=== PATIENT | male | born 1945 | race Caucasian/White ===

== ENCOUNTER → 2016-03-13 | Outpatient (CLI) | payer OTHER ==
[~2016-03-13] MED LIST: GADOBUTROL 10 ML VIAL IVP ONE
--- NOTE | 2016-03-13 17:12 | MR ---
Multiparametric MRI Prostate Gland, Without and With Contrast Indication: Elevated prostate-specific antigen. PSA level 7.4 Technique: Multiparametric MRI examination in the prostate is performed. Anatomic imaging is obtain ed utilizing large lkvoy-oe-ufhx axial T1-weighted series followed by small vfuol-ot-fdfi sequences o donal the prostate gland in three planes. High B value diffusion-weighted imaging of the prostate is a lso obtained in the axial plane. During intravenous administration of 7 Gadavist, dynamic axially ac quired perfusion images of the prostate gland are performed. Examination is processed utilizing [employer] CAD software. Comparison Examination: None. Findings: The prostate gland is enlarged, with a total volume of 85 mL (5.7 x 5.6 x 5.0 cm). The PS A density is 0.087. The hypertrophic nodular central gland fills the majority of the enlarged prostate gland. Two foci o f T1 hyperintense hemorrhage are present in the posterolateral left peripheral zone in the mid gland and in the left transitional zone towards the apex. The peripheral zone has relatively well preserve d T2 hyperintense signal. No peripheral zone nodule, mass, or capsular bulge. The neurovascular bun dles and seminal vesicles are normal. No suspicious central gland nodule or mass. No restricted dif fusion or abnormal perfusion abnormality. Survey of the large etysg-iv-ctjt axial T1-weighted imaging reveals minimal diverticulosis of the sig moid colon. No enlarged lymph node, mass, or bone marrow-replacing lesion. Posterior fusion constru ct at the lumbosacral junction results in minimal susceptibility artifact. Impression: 1. Enlarged prostate gland, with hypertrophic central gland. No suspicious prostate nodule or evide nce of extracapsular disease. 2. No lymphadenopathy or bone marrow-replacing lesion. 3. Sigmoid diverticulosis. BI-RADS: 3. Cosigned: Gallito Ramirez M.D.
== END ==
LOC: FIMAGING 07:45
PROVIDERS: ATTEND Specialist
DX: N40.0 Benign prostatic hyperplasia without lower urinary tract symptoms (principal); K57.30 Diverticulosis of large intestine without perforation or abscess without bleeding
CPT/HCPCS: 72197; 76377; A9585

== ENCOUNTER 2016-09-01 15:42 | Inpatient (IN) | payer OTHER ==
--- NOTE | 2016-09-01 16:18 | CPEKG ---
Heart Rate: 57 RR Interval: 1053 QRSD Interval: 90 QT Interval: 456 QTC Interval: 444 QRS [place]: -31 T Wave [place]: 16 EKG Severity - ABNORMAL ECG - EKG Impression: ATRIAL FLUTTER, A-RATE 283 EKG Impression: LEFT AXIS DEVIATION EKG Impression: ATRIAL FLUTTER IS NEW IN COMPARISON TO PRIOR Electronically Signed By: Sascha León 03-Sep-2016 07:53:53
[2016-09-01] MEDS ORDERED: KETOROLAC 30 MG/1 ML SDV IVP ONE (16:36)
[2016-09-01] MEDS ORDERED: DIAZEPAM 5 MG TAB PO ONE (16:36)
--- NOTE | 2016-09-01 16:41 | EDPHY ---
H & P Stated Complaint: LEFT LEG PAIN Time Seen by Provider: 09/01/16 16:14 HPI/ROS: CHIEF COMPLAINT: Left buttock and hamstring pain HISTORY OF PRESENT ILLNESS: This is a 70-year-old male presenting to the emergency department complaining of left buttock and left hamstring pain x2 weeks. Patient states the pain increased today around noon unable to ambulate bear weight due to the pain in his left buttock. Denies any bowel or bladder incontinence. Reports history of an L4-L5 fusion in 2010, also states he was told possible need for a fusion at L3 and L4 due to stenosis. Patient denies any chest pain or shortness of breath, on arrival EKG patient in a -flutter, patient reports that he had conversion in 2010 for a flutter and 2014 [employer] for a -flutter was placed on Pradaxa not on any medications at this time. "I usually do not know when I am in a flutter, I do not have any pain or palpitations with it" REVIEW OF SYSTEMS: Constitutional: No fever, no chills. Eyes: No discharge. No blurred vision ENT: No sore throat. Cardiovascular: No chest pain, no palpitations. Respiratory: No cough, no shortness of breath. Gastrointestinal: No abdominal pain, no vomiting. Genitourinary: No hematuria. No bowel or bladder incontinence Musculoskeletal: Has left buttock pain radiating to left hamstring. No paresthesia. No back pain Skin: No rashes. Neurological: No headache. Source: Patient, Old records - Personal History Current Tetanus/Diphtheria Vaccine: Yes Tetanus Vaccine Date: Jan 2010 - Medical/Surgical History Hx Asthma: No Hx Chronic Respiratory Disease: No Hx Diabetes: No Hx Cardiac Disease: No Hx Renal Disease: No Hx Cirrhosis: No Hx Alcoholism: No Hx HIV/AIDS: No Hx Splenectomy or Spleen Trauma: No Other PMH: A FLUTTER IN THE PAST - Social History Smoking Status: Former smoker - Physical Exam Exam: General Appearance: Alert, no distress. Appears uncomfortable Eyes: Pupils equal and round no pallor or injection. ENT, Mouth: Mucous membranes moist. Respiratory: There are no retractions, lungs are clear to auscultation. Cardiovascular: A-flutter Gastrointestinal: Abdomen is soft and nontender, no masses, bowel sounds normal. Neurological: No focal deficits. Answering questions appropriately Skin: Warm and dry, no rashes. Musculoskeletal: Neck is supple nontender. No vertebral thoracic or lumbar spine tenderness on palpation Extremities: symmetrical, left buttock tenderness on palpation left hamstring tenderness on palpation positive left straight leg raises positive CMS intact Psychiatric: Patient is oriented X 3, acting appropriately Constitutional: Initial Vital Signs Temperature (C) 36.9 C 09/01/16 15:48 Heart Rate 74 09/01/16 15:48 Respiratory Rate 18 09/01/16 15:48 Blood Pressure 149/97 H 09/01/16 15:48 O2 Sat (%) 97 09/01/16 15:48 O2 Delivery Mode Room Air Allergies/Adverse Reactions: No Known Allergies Allergy (Unverified 05/30/12 10:12) Home Medications: Medication Instructions Recorded ALPRAZolam [Xanax 0.25 MG (*)] 0.25 mg PO DAILY PRN 09/01/16 Aspirin [Aspirin 81mg (*)] 81 mg PO DAILY@18 09/01/16 Cyclobenzaprine [Flexeril 10 MG 10 mg PO HS 09/01/16 (*)] Diazepam [Valium 5 MG (*)] 5 mg PO BID #10 tab 09/01/16 Gabapentin [Neurontin 300 MG (*)] 300 mg PO HS PRN 09/01/16 oxyCODONE/APAP 5/325 [Percocet 1 - 2 tab PO Q6H PRN #10 tab 09/01/16 5/325 (*)] Medical Decision Making ED Course/Re-evaluation: Discussed ED plan of care: CBC, BMP, troponin, PT PTT INR, EKG pain meds. 1725: Spoke with Dr. Deleon with Cardiology [facility], he will see patient in his office this week for further evaluation. He also discussed patient starting Eliquis 5 mg twice daily if patient declines he will discuss this further in his office. 1730: Spoke with patient regarding Eliquis, he states at this time he wait until he speaks with Dr. Deleon but he is taking aspirin 81 mg daily. Patient states his pain level has decreased but still having pain with weight-bearing. Percocet ordered and will re-evaluate 1830: Patient re-evaluation---> complaining of left buttock and hamstring pain , patient states he is having a hard time putting pressure due to the pain. Dilaudid ordered, will re-evaluate patient 1944: Patient re-evaluation, increasing pain in the left buttock and left leg patient unable to ambulate or bear weight. Discussed patient with Dr. Rico. Consulted with Dr. Cameron, patient admitted for pain control sciatica Differential Diagnosis: Other differential diagnosis considered but not limited to herniated disc, uncontrolled a -flutter, and [place] - Data Points Laboratory Results: Laboratory Results 09/01/16 16:28 09/01/16 16:28 09/01/16 09/01/16 09/01/16 16:28 16:28 16:28 WBC 6.63 10^3/uL 10^3/uL (3.80-9.50) RBC 4.60 10^6/uL 10^6/uL (4.40-6.38) Hgb 15.1 g/dL g/dL (13.7-17.5) Hct 43.8 % % (40.0-51.0) MCV 95.2 fL fL (81.5-99.8) MCH 32.8 pg pg (27.9-34.1) MCHC 34.5 g/dL g/dL (32.4-36.7) RDW 12.7 % % (11.5-15.2) Plt Count 177 10^3/uL 10^3/uL (150-400) MPV 10.3 fL fL (8.7-11.7) Neut % (Auto) 81.0 % H % (39.3-74.2) Lymph % (Auto) 11.6 % L % (15.0-45.0) [place] % (Auto) 5.3 % % (4.5-13.0) Eos % (Auto) 1.5 % % (0.6-7.6) Baso % (Auto) 0.3 % % (0.3-1.7) Nucleat RBC Rel Count 0.0 % % (0.0-0.2) Absolute Neuts (auto) 5.37 10^3/uL 10^3/uL (1.70-6.50) Absolute Lymphs (auto) 0.77 10^3/uL L 10^3/uL (1.00-3.00) Absolute Monos (auto) 0.35 10^3/uL 10^3/uL (0.30-0.80) Absolute Eos (auto) 0.10 10^3/uL 10^3/uL (0.03-0.40) Absolute Basos (auto) 0.02 10^3/uL 10^3/uL (0.02-0.10) Absolute Nucleated RBC 0.00 10^3/uL 10^3/uL (0-0.01) Immature Gran % 0.3 % % (0.0-1.1) Immature Gran # 0.02 10^3/uL 10^3/uL (0.00-0.10) PT 14.0 SEC SEC (12.0-15.0) INR 1.09 (0.83-1.16) APTT 24.8 SEC SEC (23.0-38.0) Sodium 142 mEq/L mEq/L (134-144) Potassium 4.2 mEq/L mEq/L (3.5-5.2) Chloride 111 mEq/L H mEq/L (97-110) Carbon Dioxide 21 mEq/l L mEq/l (22-31) Anion Gap 10 mEq/L mEq/L (8-16) BUN 15 mg/dL mg/dL (7-23) Creatinine 0.8 mg/dL mg/dL (0.7-1.3) Estimated GFR > 60 Glucose 85 mg/dL mg/dL (70-100) Calcium 9.5 mg/dL mg/dL (8.5-10.4) Troponin I < 0.012 ng/mL ng/mL (0-0.034) Medications Given: Discontinued Medications Diazepam (Valium) 5 mg PO EDNOW ONE Stop: 09/01/16 16:37 Last Admin: 09/01/16 16:41 Dose: 5 mg Hydromorphone HCl (Dilaudid) 0.5 mg IVP EDNOW ONE Stop: 09/01/16 18:40 Last Admin: 09/01/16 18:45 Dose: 0.5 mg Ketorolac Tromethamine (Toradol) 30 mg IVP ONCE ONE Stop: 09/01/16 16:37 Last Admin: 09/01/16 16:41 Dose: 30 mg Oxycodone/Acetaminophen (Percocet 5/325) 1 tab PO EDNOW ONE Stop: 09/01/16 17:26 Last Admin: 09/01/16 17:35 Dose: 1 tab Departure - Departure Disposition: [facility] Inpatient Acute Clinical Impression: Sciatica of left side associated with disorder of lumbar spine, Atrial flutter , chronic Condition: Good
[2016-09-01 16:42] LABS: % IMMATURE GRANULYOCYTES 0.3 % (0.0-1.1); ABSOLUTE IMMATURE GRANULOCYTES 0.02 10^3/uL (0.00-0.10); ADD DIFF? NO; ADD MORPH? NO; ADD SCAN? NO; ATYPICAL LYMPHOCYTE FLAG 0 (0-99); FRAGMENT RBC FLAG 0 (0-99); HEMATOCRIT 43.8 % (40.0-51.0); HEMOGLOBIN 15.1 g/dL (13.7-17.5); LEFT SHIFT FLG 0 (0-99); LIPEMIA HEMOLYSIS FLAG 90 (0-99); MEAN CELL HEMOGLOBIN 32.8 pg (27.9-34.1); MEAN CELL HEMOGLOBIN CONCENTR. 34.5 g/dL (32.4-36.7); MEAN CELL VOLUME 95.2 fL (81.5-99.8); MEAN PLATELET VOLUME 10.3 fL (8.7-11.7); PLATELET CLUMPS FLAG 20 (0-99); PLATELET COUNT 177 10^3/uL (150-400); RED CELL DISTRIBUTION WIDTH 12.7 % (11.5-15.2)
[2016-09-01 16:55] LABS: ANION GAP 10 mEq/L (8-16); CALCIUM 9.5 mg/dL (8.5-10.4); CARBON DIOXIDE 21 mEq/l (22-31); CHLORIDE 111 mEq/L (97-110); CREATININE 0.8 mg/dL (0.7-1.3); GLOMERULAR FILTRATION RATE > 60; GLUCOSE 85 mg/dL (70-100); POTASSIUM 4.2 mEq/L (3.5-5.2); SODIUM 142 mEq/L (134-144)
[2016-09-01 17:07] LABS: TROPONIN I < 0.012 ng/mL (0-0.034)
[2016-09-01 17:09] LABS: APTT 24.8 SEC (23.0-38.0); INR 1.09 (0.83-1.16)
[2016-09-01] MEDS ORDERED: OXYCODONE/APAP 5/325 TAB PO ONE (17:25)
[2016-09-01] MEDS ORDERED: HYDROmorphONE/DILAUDID 1 MG/ML SYR IVP ONE (18:39)
[2016-09-01] MEDS ORDERED: ONDANSETRON DISINTEGRATING 4 MG TAB PO PRN (22:45)
[2016-09-01] MEDS ORDERED: DIAZEPAM 5 MG TAB PO PRN (22:45)
[2016-09-01] MEDS ORDERED: ONDANSETRON 4 MG/2 ML VIAL IVP PRN (22:45)
[2016-09-01] MEDS ORDERED: PROMETHAZINE HCL 25 MG TAB PO PRN (22:45)
[2016-09-01] MEDS ORDERED: ALPRAZolam 0.25 MG TAB PO PRN (23:13)
[2016-09-01] MEDS: HYDROmorphONE/DILAUDID 1 MG/ML SYR IVP PRN (23:42)
--- NOTE | 2016-09-02 00:30 | GHP ---
[f rep st] HISTORY AND PHYSICAL DATE OF ADMISSION: 09/01/2016 CHIEF COMPLAINT: Buttock pain. HISTORY OF PRESENT ILLNESS: This is a 70-year-old man who presents with buttock pain. He has a his tory of an L4-[address] Valero 6 years ago. Pain started about 2 weeks ago, it has been slowly progressive but acutely worse today. It is in his left buttock, maybe radiates down to his h amstring though this is mild. The pain is severe, he is unable ambulate. He does not really have a ny pain in his back. He has not had any recent fevers. He does not have any loss of bowel or bladd er. He has no lower extremity weakness. He has had some intermittent numbness in the anterior aspe ct of his right thigh for months. This comes and goes. He would not have come into the hospital fo r this. In the ED, he was found to be in atrial flutter. He has a history of atrial flutter, he has been ca rdioverted twice, last time was in 2014. He is taking an aspirin for this. He was asymptomatic wit h this, as he says that he has been in the past. He has seen Dr. Deleon. He is not having any ches t pain or shortness of breath, either. PAST MEDICAL/SURGICAL HISTORY: 1. L4-[address] Valero. 2. Elevated PSA with a negative biopsy, status post TURP. 3. Atrial flutter, as above. MEDICATIONS: Please see medication reconciliation. ALLERGIES: No known drug allergies. FAMILY HISTORY: Reviewed and noncontributory. SOCIAL HISTORY: He occasionally drinks alcohol. He quit smoking 45 years ago. REVIEW OF SYSTEMS: A 10-point review of systems is conducted and is negative except per HPI. PHYSICAL EXAM: VITAL SIGNS: Blood pressure 163/110, heart rate is 62, respiration rate 14, saturat ing 97% on room air. Temperature is 36.5. GENERAL: The patient is a pleasant man who is resting i n bed comfortably, in no acute distress. HEENT: Normocephalic, atraumatic. CARDIOVASCULAR: Irreg ularly irregular. There are no murmurs, rubs, or gallops. He has no elevated JVD. He has no lower extremity edema. PULMONARY: Lungs clear to auscultation bilaterally. ABDOMEN: Soft, nontender, nondistended. SKIN: No rash. : No [place]. NEUROLOGIC: Alert and oriented x3. He has 5/5 araseli r strength in his left leg other than his hip flexors, which are limited on his left side due to marylin n. Dorsiflexion and plantar flexion are 5/5. Sensation to light touch is intact in his bilateral l ower extremities. Reflexes are brisk bilaterally but symmetric. BACK: He is tender to palpation t o the left buttock. There is no significant tenderness to palpation over his lumbar spinal processe s. PSYCHIATRIC: Normal mood and affect. LABS: CBC is normal. INR is 1. Bicarb is 20, troponin is negative. DATA: 1. Transesophageal echocardiogram which I reviewed from 2010, was unremarkable. He had a normal LV . He did not have a thrombus at that time. 2. ECG, which I personally reviewed and interpreted, shows atrial flutter. There are no ischemic c hanges. He does have a left axis deviation. IMPRESSION AND PLAN: This is a 70-year-old man incidentally found to be in atrial flutter. He is a dmitted for pain control. 1. Left buttock pain: I assume that this is sciatica. He has seen Dr. Valero in the past. We jenniffer l give him pain control, both IV and oral overnight. We will also give him muscle relaxers. I have ordered an MRI for the morning. Dr. Valero should be notified of his admission. 2. Atrial flutter: Seems this is paroxysmal, he is asymptomatic. Dr. Deleon was consulted by the ED, though it is unclear if he is aware of his admission. He is taking an aspirin. He is rate cont rolled. Would recommend discussing with Cardiology in the morning to consider a cardioversion, I wi ll make him n.p.o. after midnight. /[id number]/MODL
[2016-09-02] MEDS: HYDROmorphONE/DILAUDID 1 MG/ML SYR IVP PRN (02:53)
[2016-09-02] MEDS: oxyCODONE IR 5 MG TAB PO PRN ×4 (06:24→18:33)
[2016-09-02] MEDS: ACETAMINOPHEN 500 MG TAB PO SCH ×3 (09:41→21:52)
--- NOTE | 2016-09-02 09:45 | CPEKG ---
Heart Rate: 61 RR Interval: 984 QRSD Interval: 134 QT Interval: 476 QTC Interval: 480 QRS [place]: -51 T Wave [place]: 51 EKG Severity - ABNORMAL ECG - EKG Impression: ATRIAL FLUTTER, A-RATE 277 EKG Impression: NONSPECIFIC IVCD WITH LAD EKG Impression: SIMILAR FINDINGS TO PRIOR ECG (YESTERDAY) Electronically Signed By: Sascha León 02-Sep-2016 09:53:23
--- NOTE | 2016-09-02 10:03 | HOSPPROG ---
Hospitalist Progress Note Assessment/Plan: DIAGNOSES: -acute sciatic and buttock area, presumed nerve impingement -atrial flutter, rapid ventricular rate.. The patient still has severe sciatic pain with any movement and is unable to stand. This is despite narcotic analgesic, Toradol, muscle relaxer, Valium. He has not yet had steroid. MRI is pending In terms of atrial flutter the patient's heart rate has slowed significantly and is pulses regular. An EKG has been done and I am told that it shows continued atrial flutter but trace master is not functioning so I am unable to view the EKG tracing. PLANS: -add prednisone for sciatic pain -await MRI of lumbar sacral spine -neuro surgical consult -I am awaiting the ability to see his current EKG to determine if he is still in atrial flutter with better rate control versus is converted to sinus rhythm. Will need to see that to determine whether we should consider cardioversion or not SUBJECTIVE: The patient is still unable to move due to severe buttock pain that sounds neuritic, no sensation of muscle spasm He continues to have no cardiac symptoms at all, no shortness of breath OBJECTIVE Vitals reviewed: Pulse is now down into the 80 range, and and regular otherwise stable Exam: alert oriented, in obvious severe pain with movement skin warm dry color ok resps not labored lungs clear BSs heart regular abd soft nondistended nontender, bowel sounds present limbs warm, no edema iv site ok EKG done this morning but we are unable to view the record due to computer issues Objective: Vital Signs Temp Pulse Resp BP Pulse Ox 36.7 C 56 L 18 162/95 H 96 09/02/16 08:51 09/02/16 08:51 09/02/16 08:51 09/02/16 08:51 09/02/16 08:51 09/01/16 09/02/16 09/03/16 06:59 06:59 06:59 Output Total 675 200 Balance -675 -200 PT 14.0 SEC (12.0-15.0) 09/01/16 16:28 INR 1.09 (0.83-1.16) 09/01/16 16:28 ICD10 Worksheet Patient Problems: Problems Problem Status Onset Atrial flutter, chronic Acute Sciatica of left side associated with disorder of lumbar spine Acute
[2016-09-02] MEDS: predniSONE 20 MG TAB PO SCH (11:47)
[2016-09-02] MEDS ORDERED: ENOXAPARIN 80 MG/0.8 ML SYR SC SCH (12:45)
[2016-09-02] MEDS: NS 1,000 ML IV SCH (14:15)
--- NOTE | 2016-09-02 17:58 | SOAPPROG ---
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 Pt will need hardware removal at L4/5 with an adjacent segment fusion of L3/4. I spoke with RN to stop all anticoagulation/make NPO. Call to OR to schedule by Caren Macedo NP. I spoke with Dr Cho and he is ok from his standpoint as well as Dr Conti's for surgery. Dr Valero to speak with Ed regarding plan now. Consents in am. Orders in computer. 09/02/16 17:52 Objective: Vital Signs Temp Pulse Resp BP Pulse Ox 36.7 C 72 18 128/98 H 95 09/02/16 16:55 09/02/16 16:55 09/02/16 16:55 09/02/16 16:55 09/02/16 16:55 09/01/16 09/02/16 09/03/16 05:59 05:59 05:59 Output Total 550 565 Balance -550 -565 PT 14.0 SEC (12.0-15.0) 09/01/16 16:28 INR 1.09 (0.83-1.16) 09/01/16 16:28 ICD10 Worksheet Patient Problems: Problems Problem Status Onset Atrial flutter, chronic Acute Sciatica of left side associated with disorder of lumbar spine Acute
[2016-09-02] MEDS ORDERED: ASPIRIN 81 MG CHEWABLE TAB PO SCH (18:00)
--- NOTE | 2016-09-02 20:53 | GCON ---
[f rep st] CONSULTATION DATE OF CONSULTATION: 09/02/2016 CHIEF COMPLAINT: Buttock pain and leg pain. HISTORY OF PRESENT ILLNESS: The patient is a 70-year-old gentleman who is known to [facility], specifically Dr. Valero, after having an L4-5 fusion done approximately 6 years ago. He pres ented to the emergency department with buttock pain and leg pain. This started approximately 2 week s ago and has progressively worsened and then acutely worsened the day of his admission. He describ es pain in his left buttock, radiates down into his hamstring. The pain is severe. He was unable t o ambulate so much that he had to call 911 and [facility] to [facility]. We were consulted for back and leg pain. He denies any other complaints such as fevers. No loss of bowel or bladder control. No saddle numb ness or groin numbness. He is able to void normally. Does have some pain related weakness in his l ower extremities due to pain in the buttock and hamstring. He gets some intermittent numbness to th e anterior aspect of his right thigh that has been going on for months. This comes and goes. He wo uld not have come into the hospital for the right leg symptoms but the left leg and lower back issue s were his main complaint. In the emergency department, he was found to be in atrial flutter. [facility] is monitoring this. He has been cardioverted twice for this, last in 2014. He is cur rently on aspirin. He sees Dr. Farhad Deleon. He denies any current chest pain or shortness of felix th. No abdominal complaints. No complaints. No loss of bowel or bladder control. PAST MEDICAL AND SURGICAL HISTORY: 1. L4-[address] Valero. 2. Elevated PSA with negative biopsy status post TURP. 3. Atrial flutter. MEDICATIONS: Please see med reconciliation form. ALLERGIES: No known drug allergies. FAMILY HISTORY: Noncontributory and reviewed. SOCIAL HISTORY: He is . He quit smoking 45 years ago. He drinks occasional alcohol. IMMUNIZATIONS: Up to date. TRAVEL: No recent travel. REVIEW OF SYSTEMS: A 10-point review of systems conducted and negative except noted in HPI. PHYSICAL EXAM: GENERAL: This is an awake, alert, oriented male, in no acute distress. VITAL SIGNS : Stable. HEENT: Pupils are equal, round, reactive to light. EOMs intact. Full visual cnorad by confrontation. Ears are patent. Nose is patent. NECK: Soft and supple. No midline tenderness. Full range of motion in flexion, extension, lateral bending, and rotation. RESPIRATORY: Deferred. CARDIAC: Deferred. ABDOMEN: Soft, nontender. No peritoneal signs. /RECTAL: Deferred. NEUR O: The patient is awake, alert, oriented to name, place, location, date, time, and situation. Lalo ry is intact to immediate, past, and current events. Speech: No aphasia, dysarthria, dysphonia. C ranial nerves 2-12 grossly intact. Motor: Patient has 5/5 strength all muscle groups of bilateral upper and lower extremities to include deltoids, biceps, triceps, brachioradialis, wrist flexors and extensors, hogshead dumper intrinsic fingers, iliopsoas, quadriceps, hamstring, plantar flexion, dorsiflexion, EHL testing. Sensation is grossly intact to light touch throughout all dermatome distributions upp er and lower extremities. Negative straight leg raise. Negative KARL test. Reflexes of biceps, t riceps, brachioradialis, knee jerks, and ankle jerk 2+/4. Toes are downgoing bilaterally. Samaniego' s negative. Babinski negative. Notes clonus. DIAGNOSTIC STUDIES: 1. Pending x-rays of lumbar spine on flexion extension views. 2. Pending MRI of the lumbar spine without contrast. ASSESSMENT: The patient is a 70-year-old male, admitted to Internal Medicine with buttock pain and sciatic symptoms. He also has currently some issues with atrial flutter. PLAN/DISCUSSION: The patient was seen and evaluated both by myself and Dr. Valero. He was seen in room 146 at [facility]. He did have some laboratory tests which CBC was normal and IN R was 1. His troponins were negative. He has a pending x-ray of his lumbar spine on flexion and ex tension views and a pending MRI of the lumbar spine without contrast. Internal Medicine admitted th e patient due to incidentally finding an issue with atrial flutter and admitted him for pain control as well. As mentioned above, Dr. Valero's did see and evaluate him as well. We will review the x- rays and MRI once it is obtained. We did speak with the patient about his plan accordingly at this point. They have tried pain medication. They recently started for him as well. All questions and concerns were answered. /[id number]/MODL
[2016-09-02] MEDS: CYCLOBENZAPRINE 10 MG TAB PO SCH (21:52)
[2016-09-03] MEDS: oxyCODONE IR 5 MG TAB PO PRN ×2 (06:26→23:25)
--- NOTE | 2016-09-03 07:10 | NEUSURGPN ---
Assessment/Plan: Assessment: 70 yo male that is s/p L4/[address] Valero in the past with new ASD at L3/4 Plan: -pt with continued s/s -pt understands surgery -consented for surgery -marked -orders in already -Pt seen by Dr Valero as well -call with any problems or issues -(from 09/02/16 note) MRI and Xrays reviewed with Dr Valero and Pt has ASD at L3 /4. Pt will need hardware removal at L4/5 with an adjacent segment fusion of L3 /4. I spoke with RN to stop all anticoagulation/make NPO. Call to OR to schedule by Caren Macedo NP. I spoke with Dr Cho and he is ok from his standpoint as well as Dr Conti's for surgery 09/02/16 17:52 Subjective: Pt awake and alert. Pt with continued back and leg pain. No richardson/neck/chest/abd or gu complaints. Objective: AAO x 3, PERRLA/EOMI no droop CN 2-12 grossly intact +lt touch 5/5 BUE/BLE = limited in LLE due to pain Neuro Check Frequency: per routine Urinary Catheter in Place: No - Physician Discussed Patient with : Anjum Patient Seen by : Anjum Neurosurgery Physical Exam - Vitals, I&O, Labs I and O 09/02/16 09/03/16 09/04/16 05:59 05:59 05:59 Output Total 550 1040 Balance -550 -1040 Weight 72.57 kg Output: Urine (ml) 550 1040 Urinal 550 1040 Other: Intake Quantity Yes Sufficient Number of Voids Urinal 2 1 Vital Signs Temp Pulse Resp BP Pulse Ox 36.6 C 52 L 15 115/72 97 09/03/16 04:35 09/03/16 04:35 09/03/16 04:35 09/03/16 04:35 09/03/16 04:35 ICD10 Worksheet Patient Problems: Problems Problem Status Onset Atrial flutter, chronic Acute Sciatica of left side associated with disorder of lumbar spine Acute
--- NOTE | 2016-09-03 07:13 | PDHPUP ---
History & Physical Update H&P update statement: This history and physical update is based on an assessment of the patient which was completed after admission or registration (within 24 hours), but prior to the surgery/procedure. H&P update: H&P reviewed & patient examined, no change in patient's condition since H&P completed
[2016-09-03] MEDS: predniSONE 20 MG TAB PO SCH (08:44)
[2016-09-03] MEDS: ACETAMINOPHEN 500 MG TAB PO SCH ×3 (08:44→23:24)
[2016-09-03] MEDS ORDERED: THROMBIN (BOVINE) 5,000 UNIT VIAL TP ONE (13:57)
[2016-09-03] MEDS ORDERED: BUPIVACAINE/EPI 0.25% 30 ML SDV ONE (13:57)
[2016-09-03] MEDS ORDERED: BACITRACIN 50,000 UNITS/10 ML SYR IRR ONE (13:58)
--- NOTE | 2016-09-03 16:20 | PDCARCONS ---
Cardiology Consult Reason for Consult: Atrial flutter Chief Complaint: Inability to walk Requesting Physician: Marquis History of Present Illness: 62-year-old male history of atrial flutter x2. Both episodes required cardioversion. He was seen by Dr. Jonah Berrios at of [facility]. At that time he had pneumonia. He went into atrial flutter. He was asymptomatic. He at that time he had an extensive workup including a negative nuclear stress test , unremarkable echocardiogram and underwent cardioversion. He has no symptoms related to this irregular rhythm. He has no cardiovascular history. In particular he denies valvular heart disease coronary disease, primary muscle disease. He has had no syncope or near syncope. He has had no palpitations. He is admitted to the hospital with a need for back surgery. He was found to be in atrial flutter with a controlled ventricular response. I am asked to comment on need for cardioversion, need for chronic anticoagulation and/or rate control. On my arrival he is feeling well without any complaints other than back pain and inability to walk. Cardiac review of systems is negative for chest pain, shortness of breath, PND , orthopnea, palpitations, syncope, near syncope, edema. History Information - Allergies/Home Medication List Allergies/Adverse Reactions: No Known Allergies Allergy (Unverified 05/30/12 10:12) Home Medications: ALPRAZolam [Xanax 0.25 MG (*)] 0.25 mg PO DAILY PRN 09/01/16 [Last Taken ] Aspirin [Aspirin 81mg (*)] 81 mg PO DAILY@18 09/01/16 [Last Taken 08/31/16] Cyclobenzaprine [Flexeril 10 MG (*)] 10 mg PO HS 09/01/16 [Last Taken 09/01/16] Gabapentin [Neurontin 300 MG (*)] 300 mg PO HS PRN 09/01/16 [Last Taken Unknown] I have personally reviewed and updated: family history, medical history, social history, surgical history - Past Medical History Additional medical history: Atrial flutter as above. Pneumonia - Family History Positive for: non-pertinent - Social History Smoking Status: Former smoker Alcohol Use: None (He is extraordinarily active cycling without limitations.) Age [age] Years: [age] Sex: Male Congestive Heart Failure History: No Hypertension History: No Stroke/TIA/Thromboembolism History: No Vascular Disease History: No Diabetes Mellitus: No [id number] Score: 5 Physical Exam Temp Pulse Resp BP Pulse Ox 36.7 C 76 16 144/89 H 96 09/03/16 15:48 09/03/16 15:48 09/03/16 15:48 09/03/16 15:48 09/03/16 15:48 Constitutional: no apparent distress, appears nourished, not in pain Eyes: PERRL, anicteric sclera Ears, Nose, Mouth, Throat: moist mucous membranes Cardiovascular: no murmur, rub, or gallop, irregularly irregular, No systolic murmur, No JVD Peripheral Pulses: 1+: carotid (R), carotid (L), femoral (R), femoral (L), dorsalis-pedis (R), dorsalis-pedis (L) Respiratory: no respiratory distress, no rales or rhonchi Gastrointestinal: normoactive bowel sounds, soft, non-tender abdomen, no palpable masses Genitourinary: no bladder fullness Skin: warm, normal color Musculoskeletal: full muscle strength, no muscle tenderness Neurologic: AAOx3, No facial droop Psychiatric: interacting appropriately, not anxious Lymph, Heme, Immunologic: no cervical LAD, no supraclavicular LAD Lab and Imaging 09/01/16 16:28 09/01/16 16:28 WBC 6.63 10^3/uL (3.80-9.50) 09/01/16 16:28 RBC 4.60 10^6/uL (4.40-6.38) 09/01/16 16:28 Hgb 15.1 g/dL (13.7-17.5) 09/01/16 16:28 Hct 43.8 % (40.0-51.0) 09/01/16 16:28 MCV 95.2 fL (81.5-99.8) 09/01/16 16:28 MCH 32.8 pg (27.9-34.1) 09/01/16 16:28 MCHC 34.5 g/dL (32.4-36.7) 09/01/16 16:28 RDW 12.7 % (11.5-15.2) 09/01/16 16:28 Plt Count 177 10^3/uL (150-400) 09/01/16 16:28 MPV 10.3 fL (8.7-11.7) 09/01/16 16:28 Neut % (Auto) 81.0 % (39.3-74.2) H 09/01/16 16:28 Lymph % (Auto) 11.6 % (15.0-45.0) L 09/01/16 16:28 Baker % (Auto) 5.3 % (4.5-13.0) 09/01/16 16:28 Eos % (Auto) 1.5 % (0.6-7.6) 09/01/16 16:28 Baso % (Auto) 0.3 % (0.3-1.7) 09/01/16 16:28 Nucleat RBC Rel Count 0.0 % (0.0-0.2) 09/01/16 16:28 Absolute Neuts (auto) 5.37 10^3/uL (1.70-6.50) 09/01/16 16:28 Absolute Lymphs (auto) 0.77 10^3/uL (1.00-3.00) L 09/01/16 16:28 Absolute Monos (auto) 0.35 10^3/uL (0.30-0.80) 09/01/16 16:28 Absolute Eos (auto) 0.10 10^3/uL (0.03-0.40) 09/01/16 16:28 Absolute Basos (auto) 0.02 10^3/uL (0.02-0.10) 09/01/16 16:28 Absolute Nucleated RBC 0.00 10^3/uL (0-0.01) 09/01/16 16:28 Immature Gran % 0.3 % (0.0-1.1) 09/01/16 16:28 Immature Gran # 0.02 10^3/uL (0.00-0.10) 09/01/16 16:28 PT 14.0 SEC (12.0-15.0) 09/01/16 16:28 INR 1.09 (0.83-1.16) 09/01/16 16:28 APTT 24.8 SEC (23.0-38.0) 09/01/16 16:28 Sodium 142 mEq/L (134-144) 09/01/16 16:28 Potassium 4.2 mEq/L (3.5-5.2) 09/01/16 16:28 Chloride 111 mEq/L (97-110) H 09/01/16 16:28 Carbon Dioxide 21 mEq/l (22-31) L 09/01/16 16:28 Anion Gap 10 mEq/L (8-16) 09/01/16 16:28 BUN 15 mg/dL (7-23) 09/01/16 16:28 Creatinine 0.8 mg/dL (0.7-1.3) 09/01/16 16:28 Estimated GFR > 60 09/01/16 16:28 Glucose 85 mg/dL (70-100) 09/01/16 16:28 Calcium 9.5 mg/dL (8.5-10.4) 09/01/16 16:28 Troponin I < 0.012 ng/mL (0-0.034) 09/02/16 04:20 Visualized and Interpreted EKG results: Yes EKG additional interpertation: EKG reveals atrial flutter with a controlled ventricular response. There are no ST-T changes concerning for ischemia. This appears to be classic flutter A/P Assessment: Impression: Lone atrial flutter with controlled ventricular response. Patient is asymptomatic. He has no history of structural heart disease and has undergone a workup. He is preparing for back surgery. At this point any intervention would require long-term anticoagulation of at least 30 days. I am in favor of continued observation. Aspirin as soon as possible. Once he is able to walk would determine whether not his atrial flutter is rate controlled with exercise. At that point we discussed options of more aggressive rate control with beta-leif versus rhythm management by cardioversion and/or flutter ablation. He and I are both in agreement that at this time his back is his biggest problem. We do not want to interfere with need for surgery/ injections. We will follow him clinically. If he is planning to go to the operating room would begin low-dose beta-leif for rate control during surgery. This was discussed with Dr. Cho. Plan: No indications for cardioversion at this time. Dose beta-leif for rate control if needed for surgery. Outpatient follow-up for rate/rhythm control assessment. Past Medical History - Personal History Current Tetanus/Diphtheria Vaccine: Yes Tetanus Vaccine Date: Jan 2010 - Medical/Surgical History Hx Asthma: No Hx Chronic Respiratory Disease: No Hx Cardiac Disease: No Hx Diabetes: No Hx Renal Disease: No Hx Alcoholism: No Hx Cirrhosis: No Hx HIV/AIDS: No Hx Splenectomy or Spleen Trauma: No Other PMH: A FLUTTER IN THE PAST, L4/L5 fusion, BPH- prostate surgery 2015, tonsilectomy, appendectomy, umbilical hernia repair, 2 cardioversions, - Social History Smoking Status: Former smoker Review of Systems - Review of Systems Constitutional: denies: chills, fever, malaise EENTM: no symptoms reported Respiratory: no symptoms reported Cardiac: no symptoms reported Gastrointestinal/Abdominal: no symptoms reported Genitourinary: no symptoms Musculoskelatal: back pain Skin: no symptoms Neurological: paresthesia Hematologic/Lymphatic: no symptoms reported Immunologic/allergic: no symptoms reported
[2016-09-03] MEDS ORDERED: BISACODYL 10 MG SUPP PR PRN (16:56)
[2016-09-03] MEDS ORDERED: MAGNESIUM HYDROXIDE 30 ML UDCUP PO PRN (16:56)
[2016-09-03] MEDS ORDERED: LACTULOSE 20 GM/30 ML UDCUP PO PRN (16:56)
[2016-09-03] MEDS ORDERED: POLYETHYLENE GLYCOL 3350 17 GM PKT PO PRN (16:56)
--- NOTE | 2016-09-03 16:56 | HOSPPROG ---
Hospitalist Progress Note Assessment/Plan: 1. acute sciatic and buttock area, presumed nerve impingement -surgery today 2. atrial flutter, rapid ventricular rate -cardiology consult noted -eventual outpatient ablation procedure possible, will need o/p FU -off aspirin and anticoagulation for surgery -resume aspirin for lone aflutter and DVT prophylaxis measures post op when safe per neurosurgery -B leif for rate control around surgery and post op (as starts to exercise ) if needed PCP Dr Jarrell Dispo- > 2 mdnts to recuperate fro surgery DVT prophy- see above Subjective: Feels OK- waiting for surgery today. Denies CP/SOB/abd pain. Back pain OK with meds currently. Objective: Vital Signs Temp Pulse Resp BP Pulse Ox 98.1 F 76 16 144/89 H 96 09/03/16 15:48 09/03/16 15:48 09/03/16 15:48 09/03/16 15:48 09/03/16 15:48 09/02/16 09/03/16 09/04/16 11:59 11:59 11:59 Output Total 475 Balance -475 PT 14.0 SEC (12.0-15.0) 09/01/16 16:28 INR 1.09 (0.83-1.16) 09/01/16 16:28 - Pending Discharge Pending Discharge Within 24 Hours: No - Physical Exam Constitutional: no apparent distress, appears nourished Eyes: PERRL, anicteric sclera, EOMI Ears, Nose, Mouth, Throat: moist mucous membranes, hearing normal Cardiovascular: irregularly irregular Respiratory: no respiratory distress, no rales or rhonchi, clear to auscultation Gastrointestinal: normoactive bowel sounds, soft, non-tender abdomen, no palpable masses Psychiatric: interacting appropriately, not anxious, not encephalopathic, thought process linear ICD10 Worksheet Patient Problems: Problems Problem Status Onset Arthrodesis status Acute Atrial flutter, chronic Acute Lumbar radicular pain Acute Lumbar stenosis Acute Sciatica of left side associated with disorder of lumbar spine Acute
[2016-09-03] MEDS ORDERED: ceFAZolin 2 GM/DEXTROSE 100 ML IV ONE (17:00)
--- NOTE | 2016-09-03 17:21 | PDANEPAE ---
ANE Past Medical History - Cardiovascular History Hx Arrhythmias: Yes Cardiovascular History Comment: atril flutter - Pulmonary History Hx Oxygen in Use at Home: No Hx Sleep Apnea: No Sleep Apnea Screening Result - Last Documented: Negative - Endocrine History Hx Diabetes: No - Liver History Hx Hepatic Disorders: Yes Hepatic History Comment: elevated nLFT's with lipitor - Chronic Pain History Chronic Pain: No ANE Patient History - Allergies Allergies/Adverse Reactions: No Known Allergies Allergy (Unverified 05/30/12 10:12) - Home Medications Home Medications: ALPRAZolam [Xanax 0.25 MG (*)] 0.25 mg PO DAILY PRN 09/01/16 [Last Taken ] Aspirin [Aspirin 81mg (*)] 81 mg PO DAILY@18 09/01/16 [Last Taken 08/31/16] Cyclobenzaprine [Flexeril 10 MG (*)] 10 mg PO HS 09/01/16 [Last Taken 09/01/16] Gabapentin [Neurontin 300 MG (*)] 300 mg PO HS PRN 09/01/16 [Last Taken Unknown] - NPO status NPO Since - Liquids (Date): 09/03/16 NPO Since - Liquids (Time): 00:00 NPO Since - Solids (Date): 09/02/16 NPO Since - Solids (Time): 18:00 - Smoking Hx Smoking Status: Former smoker - Alcohol Use Alcohol Use: None (He is extraordinarily active cycling without limitations.) ANE Labs/Vital Signs - Labs Result Diagrams: 09/01/16 16:28 09/01/16 16:28 - Vital Signs Blood Pressure: 144/89 Heart Rate: 76 Respiratory Rate: 16 O2 Sat (%): 96 Height: 175.26 cm Weight: 72.57 kg ANE Physical Exam - Airway Mallampati Score: Class 1 Mouth exam: normal dental/mouth exam - Pulmonary Pulmonary: no respiratory distress - Cardiovascular Cardiovascular: regular rate and rhythym - ASA Status ASA Status: II
[2016-09-03] MEDS ORDERED: PROPOFOL/EMULSION 500 MG/50 ML BOTTLE IV ONE ×2 (17:54→19:48)
[2016-09-03] MEDS ORDERED: ROCURONIUM 100 MG/10 ML VIAL ONE (17:55)
[2016-09-03] MEDS ORDERED: DEXAMETHASONE 4 MG/ML VIAL ONE ×2 (17:55)
[2016-09-03] MEDS ORDERED: LIDOCAINE 2% 100 MG/5 ML SYR ONE (17:55)
[2016-09-03] MEDS ORDERED: PHENYLEPHRINE 10 MG/ML SDV ONE (17:58)
[2016-09-03] MEDS ORDERED: diphenhydrAMINE 25 MG CAP PO PRN (18:03)
[2016-09-03] MEDS ORDERED: NALOXONE HCL 0.4 MG/ML INJ IVP PRN ×2 (18:03→21:55)
[2016-09-03] MEDS ORDERED: HYDROmorphONE/DILAUDID 6 MG/30 ML PCA IV PRN (18:03)
[2016-09-03] MEDS ORDERED: PROPOFOL 200 MG/20 ML VIAL ONE (18:07)
--- NOTE | 2016-09-03 21:49 | SOAPPROG ---
SOAP Progress Note Assessment/Plan: Post Op Visit S: Awake and alert. NAD. Pt with expected lower back pain O: AFVSS, PERRLA/EOMI no droop CN 2-12 grossly intact CDI 5/5 BUE/BLE = STELLA in place A/P: 70 yo male that is s/p removal of hardware at L4/5 with new TLIF at L3/4 and PSF L3-L5 -orders in place -pt fit for brace already -call with any questions or concerns -take medications as directed -pt seen by Dr Valero as well 09/03/16 21:46 Objective: Vital Signs Temp Pulse Resp BP Pulse Ox 36.7 C 76 16 144/89 H 96 09/03/16 15:48 09/03/16 17:20 09/03/16 17:20 09/03/16 17:20 09/03/16 17:20 09/02/16 09/03/16 09/04/16 05:59 05:59 05:59 Output Total 475 Balance -475 PT 14.0 SEC (12.0-15.0) 09/01/16 16:28 INR 1.09 (0.83-1.16) 09/01/16 16:28 ICD10 Worksheet Patient Problems: Problems Problem Status Onset Arthrodesis status Acute Atrial flutter, chronic Acute Lumbar radicular pain Acute Lumbar stenosis Acute Sciatica of left side associated with disorder of lumbar spine Acute - ICD10 Problem Qualifiers (1) Lumbar stenosis (2) Lumbar radicular pain (3) Arthrodesis status
[2016-09-03] MEDS ORDERED: LR 500 ML IV PRN (21:55)
[2016-09-03] MEDS ORDERED: MEPERIDINE 25 MG/ML SYR IVP PRN (21:55)
[2016-09-03] MEDS ORDERED: fentaNYL 100 MCG/2 ML INJ IVP PRN (21:55)
[2016-09-03] MEDS ORDERED: ONDANSETRON 4 MG/2 ML VIAL IVP PRN (21:55)
--- NOTE | 2016-09-03 21:55 | POSTANESTH ---
Post Anesthetic Evaluation Respiratory Status: Normal, Stable Level of Consciousness/Mental Status: Can Participate in Eval Pain Control: Adequate, Prn Tx Ordered Nausea/Vomiting Control: Adequate, Prn Tx Ordered Complications Possibly Related to Anesthesia: None Noted
[2016-09-03] MEDS ORDERED: HYDROmorphONE/DILAUDID 1 MG/ML SYR ONE (22:12)
[2016-09-03] MEDS: HYDROmorphONE/DILAUDID 1 MG/ML SYR IVP PRN ×2 (22:18→22:28)
[2016-09-03] MEDS: SENNOSIDES/DOCUSATE SODIUM TAB PO SCH (23:24)
[2016-09-03] MEDS: FAMOTIDINE 20 MG TAB PO SCH (23:24)
[2016-09-03] MEDS: GABAPENTIN 300 MG CAP PO PRN (23:25)
[2016-09-03] MEDS: ceFAZolin 2 GM/DEXTROSE 100 ML IV SCH (23:26)
[2016-09-03] MEDS: NS 1,000 ML IV SCH (23:26)
[2016-09-03] MEDS: CYCLOBENZAPRINE 10 MG TAB PO SCH (23:36)
[2016-09-03] MEDS: morphINE SR 15 MG TAB PO SCH (23:40)
[2016-09-04] MEDS: METHOCARBAMOL 750 MG TAB PO PRN ×3 (04:25→21:35)
[2016-09-04] MEDS: oxyCODONE IR 5 MG TAB PO PRN ×5 (04:25→21:35)
[2016-09-04 05:06] LABS: % IMMATURE GRANULYOCYTES 0.5 % (0.0-1.1); ABSOLUTE IMMATURE GRANULOCYTES 0.07 10^3/uL (0.00-0.10); ADD DIFF? NO; ADD MORPH? NO; ADD SCAN? NO; ATYPICAL LYMPHOCYTE FLAG 0 (0-99); FRAGMENT RBC FLAG 0 (0-99); HEMATOCRIT 46.3 % (40.0-51.0); HEMOGLOBIN 16.1 g/dL (13.7-17.5); LEFT SHIFT FLG 10 (0-99); LIPEMIA HEMOLYSIS FLAG 90 (0-99); MEAN CELL HEMOGLOBIN 33.3 pg (27.9-34.1); MEAN CELL HEMOGLOBIN CONCENTR. 34.8 g/dL (32.4-36.7); MEAN CELL VOLUME 95.7 fL (81.5-99.8); MEAN PLATELET VOLUME 10.4 fL (8.7-11.7); PLATELET CLUMPS FLAG 10 (0-99); PLATELET COUNT 207 10^3/uL (150-400); RED BLOOD CELL COUNT 4.84 10^6/uL (4.40-6.38); RED CELL DISTRIBUTION WIDTH 12.2 % (11.5-15.2)
[2016-09-04 05:17] LABS: POTASSIUM 4.8 mEq/L (3.5-5.2)
[2016-09-04 05:18] LABS: ANION GAP 10 mEq/L (8-16); CALCIUM 9.2 mg/dL (8.5-10.4); CARBON DIOXIDE 19 mEq/l (22-31); CHLORIDE 110 mEq/L (97-110); CREATININE 0.8 mg/dL (0.7-1.3); GLOMERULAR FILTRATION RATE > 60; GLUCOSE 126 mg/dL (70-100); SODIUM 139 mEq/L (134-144)
[2016-09-04] MEDS: ceFAZolin 2 GM/DEXTROSE 100 ML IV SCH (07:54)
--- NOTE | 2016-09-04 07:54 | NEUSURGPN ---
Assessment/Plan: A/P: 70 yo male that is s/p removal of hardware at L4/5 with new TLIF at L3/4 and PSF L3-L5 - POD#1 -PT/OT -Pain management -Brace when OOB -Post op xrays pending -STELLA drain productive, leave in place and likely remove tomorrow -TEDs, SCDs, Lovenox POD#3 -OK to resume ASA on 09/07/16 -call NS with any questions or concerns -pt d/w Dr Valero as well Subjective: Pt resting in bed, states his left leg feels improved compared to pre operatively and he is feeling good. Objective: AAOx3 NAD VSS MAEx4 Motor 5/5 BLE +LT Incision dressed JPx1 Urinary Catheter in Place: No - Physician Discussed Patient with : [facility] Physical Exam - Vitals, I&O, Labs I and O 09/03/16 09/04/16 09/05/16 05:59 05:59 05:59 Intake Total 2380 Output Total 475 1355 Balance -475 1025 Weight 72.57 kg Intake: Oral (ml) 330 IV Intake (ml) 1300 IV Infused (ml) 750 Ns 1,000 ml @ 75 mls/hr 650 IV CONT LION Rx#: [id number] ceFAZolin 2 GM/DEXTROSE 100 100 ml @ 200 mls/hr IV Q8H LION Rx#:[id number] Output: Urine (ml) 475 850 Urinal 475 850 Estimated Blood Loss (ml) 200 STELLA Drain Output (ml) 305 #1 Posterior Back 305 Other: Intake Quantity Yes Sufficient Number of Voids Urinal 1 1 Vital Signs Temp Pulse Resp BP Pulse Ox 35.7 C L 62 18 107/72 97 09/04/16 04:00 09/04/16 04:00 09/04/16 04:00 09/04/16 04:00 09/04/16 04:00 Laboratory Results 09/04/16 04:35 09/04/16 04:35 ICD10 Worksheet Patient Problems: Problems Problem Status Onset Arthrodesis status Acute Atrial flutter, chronic Acute Lumbar radicular pain Acute Lumbar stenosis Acute Sciatica of left side associated with disorder of lumbar spine Acute
[2016-09-04] MEDS: morphINE SR 15 MG TAB PO SCH ×2 (08:01→21:33)
[2016-09-04] MEDS: predniSONE 20 MG TAB PO SCH (08:02)
[2016-09-04] MEDS: FAMOTIDINE 20 MG TAB PO SCH ×2 (08:02→21:35)
[2016-09-04] MEDS: SENNOSIDES/DOCUSATE SODIUM TAB PO SCH ×2 (08:02→21:36)
[2016-09-04] MEDS: ACETAMINOPHEN 500 MG TAB PO SCH ×3 (08:03→21:35)
--- NOTE | 2016-09-04 16:19 | GOP ---
[f rep st] OPERATIVE REPORT DATE OF OPERATION: 09/03/2016 SURGEON: Maritza Valero MD LARGE ENGINE ASSEMBLER: Juan Luu PA-C. 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 PROCEDURE PERFORMED: Removal of posterior nonsegmental instrumentation across the L4-5 interspace, posterior segmental instrumentation L3, L4, L5, posterior lateral and intervertebral arthrodesis at the L3-4 level with a bilateral decompression for spinal stenosis and bony retrolisthesis ([id number]), p lacement of expandable biomechanical intervertebral device L3-4, same incision bone graft harvest, m icroscope, spinal stereotactic. FINDINGS: ESTIMATED BLOOD LOSS: 200 cc. INDICATIONS: Mr. Maddox is a 70-year-old gentleman who in 2010 underwent a successful L4-5 fusion for spondylolisthesis and severe stenosis, and did well. Over the last several weeks, he has develo ped increasing back pain and some radiating pain into the left leg, but he is tolerating it until 3 days ago, he developed excruciating, horrible pain radiating down both the left and even some pain i nto the right leg with weakness in the right leg, and he had bilateral symptoms who is a partial cau da equina type picture with bilateral leg symptoms, and he could no longer ambulate. [facility] and Neurosurgery was consulted. An MRI was done and he had obliteration of the spinal canal at the L3-4 level due to a combination of both a disk protrusion a s well as severe ligamentum flavum hypertrophy and facet arthropathy. 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 There was no stenosis at 4-5 or L5-S 1. He did have a disk bulge at L2-3, but no significant stenosis there. We suggested adjacent segmen t fusion. He is on Plavix and aspirin, and Lovenox for a heart condition, but Cardiology cleared him for surgery, and this being a lumbar surgery we felt it was reasonable given his excruciating pain and his inability to ambulate, to go ahead and pursue emergent surgery for this. The risk of adjacen t segment disease, spinal hematoma, future spine surgery, continued symptoms, nerve injury, spinal f luid leak, screw and hardware malposition, and pseudoarthrosis were discussed. He knew these risks a nd he wanted to proceed. DESCRIPTION OF PROCEDURE: Patient was taken to the operating room and placed in supine position. Ge neral anesthesia was begun and he was flipped prone onto the Govind table. Care was taken to pad al l points of contact. His back was sterilely prepped and draped in the usual fashion. A localizing x- ray was taken. We opened the prior incision and extended it rostrally about 2 cm and inferiorly about 1 cm. Subcuta neous tissue was dissected with the plasma blade down to the fascia and a subperiosteal dissection w as made down the inferior lamina of L2, the laminae of L3. The rostral lamina of L4 was exposed. The prior hardware at L4-5 was exposed. There was solid bony union. We removed the hardware in its enti rety, placed it in a cup and asked it to be scrubbed to be given back to the patient. We used a high -speed drill to denude the bilateral L3-4 facet joints and decorticated the transverse processes as well as to re-prep the posterolateral bone mass at L4-5 so that we could do a bony overlay on the L4 -5 level as well. There was solid bony union. We tested Stealth reference frame, and using frameless Stealth stereotaxy, we placed pedicle screws bilaterally at L3, L4, and L5. We used a 5.5 mm system . We used the same size screws that were removed at L4-5 as before. We used 6.5 mm screws at L3. We placed the namita down over the screws, distracting between L3 and L4. We then removed all the soft tis sussy off the the bone at L3-4 and performed an L3-4 laminectomy, and under the microscope decompresse d the thecal sac, removed the rostral L4 lamina and excellent decompression was obtained. There was remarkable ligamentum flavum hypertrophy and severe bilateral stenosis. We dissected all of this fr ee and decompressed from the edge of the thecal sac to the edge of the thecal sac. We swept the thec al sac medially, and from a left-handed approach, we probed under the thecal sac and there was a rel atively large free disk fragment that was removed. We then incised the L3-4 disk, removed the disk a nd the cartilaginous endplates, roughened the subchondral bone to create arthrodesis of the interspa ce, and then chose an expandable device. We chose a 9 x 28 mm Elevate device. It was inserted at L3- 4 under fluoroscopic guidance and expanded under fluoroscopic guidance. We were happy with the devic e. We final tightened all the cap screws according to company specification, decorticated all the re maining bone posterolaterally at L3-4 and L4-5, and laid bone autograft posterolaterally bilaterally at L3-4, 4-5. We placed bone morphogenic protein posterolaterally at L3-4 only. A total of 2.0 mg o f BMP was used for the entire case. We placed a subfascial drain and closed the incision in multiple layers using Vicryl sutures and running PDS was placed in the skin itself. There were no complications. The patient tolerated the procedure well. COMPLICATIONS: None. /[id number]/MODL
[2016-09-04] MEDS ORDERED: MAGNESIUM HYDROXIDE 30 ML UDCUP PO ONE (17:26)
--- NOTE | 2016-09-04 17:30 | HOSPPROG ---
Hospitalist Progress Note Assessment/Plan: 1. acute sciatic and buttock area, presumed nerve impingement -pod#1 -PT/OT per neurosurg 2. atrial flutter, no rapid ventricular rate currently, on tele -cardiology consult done prior to surgery -eventual outpatient ablation procedure possible, will need o/p FU -off aspirin and anticoagulation for surgery -resume aspirin for lone aflutter and DVT prophylaxis measures post op when safe per neurosurgery (per notes 09/07) -B leif for rate control post op (as starts to exercise) if needed PCP Dr Jarrell Dispo- 1-2 more mdnts to recuperate from surgery DVT prophy- see above, TEDs/SCDs Subjective: Feels well, pain OK with meds. Has ambulated sinnce surgery. No BM yet. No CP/SOB/palpitaations. in room. Objective: Vital Signs Temp Pulse Resp BP Pulse Ox 97.4 F 73 20 115/70 96 09/04/16 16:00 09/04/16 16:00 09/04/16 16:00 09/04/16 16:00 09/04/16 16:00 Laboratory Results 09/04/16 04:35 09/04/16 04:35 09/03/16 09/04/16 09/05/16 11:59 11:59 11:59 Intake Total 2380 Output Total 475 1435 Balance -475 945 PT 14.0 SEC (12.0-15.0) 09/01/16 16:28 INR 1.09 (0.83-1.16) 09/01/16 16:28 - Physical Exam Constitutional: no apparent distress, appears nourished Eyes: PERRL, anicteric sclera, EOMI Ears, Nose, Mouth, Throat: moist mucous membranes Cardiovascular: regular rate and rhythym, No edema Respiratory: no respiratory distress, no rales or rhonchi, clear to auscultation Musculoskeletal: other (in post op back brace) Psychiatric: interacting appropriately, not anxious, not encephalopathic, thought process linear ICD10 Worksheet Patient Problems: Problems Problem Status Onset Arthrodesis status Acute Atrial flutter, chronic Acute Lumbar radicular pain Acute Lumbar stenosis Acute Sciatica of left side associated with disorder of lumbar spine Acute
[2016-09-04] MEDS ORDERED: SENNOSIDES/DOCUSATE SODIUM TAB PO SCH (21:00)
[2016-09-04] MEDS: CYCLOBENZAPRINE 10 MG TAB PO SCH (21:33)
[2016-09-04] MEDS: GABAPENTIN 300 MG CAP PO PRN (21:35)
[2016-09-05] MEDS ORDERED: DILTIAZEM 125 MG in D5W 125 ML IV SCH (02:45)
[2016-09-05] MEDS ORDERED: DILTIAZEM 25 MG/5 ML VIAL IVP ONE (02:45)
[2016-09-05] MEDS ORDERED: METOPROLOL TARTRATE 5 MG/5 ML INJ IVP PRN (02:58)
--- NOTE | 2016-09-05 02:58 | HOSPPROG ---
Hospitalist Progress Note Assessment/Plan: Cross cover note: Called by nursing to evaluate patients telemetry strip--noted to be in a flutter with rates ranging from 150-190 for several minutes. Evaluated patient who was alert, asymptomatic. While speaking with patient his rate came back down to 70s, still in flutter. Speaking with him, he would prefer to have no medications administered unless Dr. Conti is present and has a chance to evaluate his rhythm during and after medication administration. Explained that having a rate that high is potentially dangerous and that it could not wait until morning but given that his rate improved spontaneously could hold off on starting rate controlling medications. Reviewed Dr. Conti's note, noted that he recommended BB pre operatively. Will order PRN metoprolol for sustained rates > 120. Will get 12 lead. Continue to monitor on tele. Objective: Vital Signs Temp Pulse Resp BP Pulse Ox 36.7 C 68 16 115/63 93 09/04/16 23:33 09/04/16 23:33 09/04/16 23:33 09/04/16 23:33 09/04/16 23:33 Laboratory Results 09/04/16 04:35 09/04/16 04:35 09/03/16 09/04/16 09/05/16 05:59 05:59 05:59 Intake Total 2380 1999 Output Total 475 1355 540 Balance -475 1025 1460 PT 14.0 SEC (12.0-15.0) 09/01/16 16:28 INR 1.09 (0.83-1.16) 09/01/16 16:28 ICD10 Worksheet Patient Problems: Problems Problem Status Onset Sciatica of left side associated with disorder of lumbar spine Acute Atrial flutter, chronic Acute Lumbar stenosis Acute Lumbar radicular pain Acute Arthrodesis status Acute
[2016-09-05 05:07] LABS: % IMMATURE GRANULYOCYTES 0.5 % (0.0-1.1); ABSOLUTE IMMATURE GRANULOCYTES 0.06 10^3/uL (0.00-0.10); ADD DIFF? NO; ADD MORPH? NO; ADD SCAN? NO; ATYPICAL LYMPHOCYTE FLAG 0 (0-99); FRAGMENT RBC FLAG 0 (0-99); HEMATOCRIT 34.9 % (40.0-51.0); LEFT SHIFT FLG 10 (0-99); LIPEMIA HEMOLYSIS FLAG 90 (0-99); MEAN CELL HEMOGLOBIN 32.8 pg (27.9-34.1); MEAN CELL HEMOGLOBIN CONCENTR. 34.4 g/dL (32.4-36.7); MEAN CELL VOLUME 95.4 fL (81.5-99.8); MEAN PLATELET VOLUME 10.3 fL (8.7-11.7); PLATELET CLUMPS FLAG 0 (0-99); PLATELET COUNT 152 10^3/uL (150-400); RED BLOOD CELL COUNT 3.66 10^6/uL (4.40-6.38); RED CELL DISTRIBUTION WIDTH 12.5 % (11.5-15.2)
[2016-09-05 05:49] LABS: ALANINE AMINOTRANSFERASE 27 IU/L (21-72); ALBUMIN 2.7 g/dL (3.5-5.0); ALKALINE PHOSPHATASE 45 IU/L (38-126); ANION GAP 7 mEq/L (8-16); ASPARTATE AMINOTRANSFERASE 18 IU/L (17-59); BILIRUBIN,TOTAL 0.4 mg/dL (0.1-1.4); CALCIUM 8.3 mg/dL (8.5-10.4); CARBON DIOXIDE 23 mEq/l (22-31); CHLORIDE 110 mEq/L (97-110); CREATININE 0.8 mg/dL (0.7-1.3); GLOMERULAR FILTRATION RATE > 60; GLUCOSE 87 mg/dL (70-100); SODIUM 140 mEq/L (134-144); TOTAL PROTEIN 4.7 g/dL (6.3-8.2)
[2016-09-05] MEDS: oxyCODONE IR 5 MG TAB PO PRN ×2 (05:56→13:10)
--- NOTE | 2016-09-05 07:33 | NEUSURGPN ---
Date of Surgery: 09/03/16 Post Op Day: 2 Assessment/Plan: A/P: 70 yo male that is s/p removal of hardware at L4/5 with new TLIF at L3/4 and PSF L3-L5 - POD#2 -PT/OT -Pain management -Brace when OOB -Post op xrays stable -DC STELLA drain -Ok to leave dressing off, leave steri strips in place -May shower tomorrow -Ok to discharge home per neurosurg, if ok with cardiology -TEDs, SCDs, Lovenox POD#3 -OK to resume ASA on 09/07/16 -call NS with any questions or concerns -pt seen by Dr Valero as well Subjective: Patient resting in bed, left leg pain gone, expected lower back pain Objective: AAOx3 NAD VSS MAEx4 Motor 5/5 BLE +LT Incision CDI JPx1 Neuro Check Frequency: per routine Urinary Catheter in Place: No - Physician Discussed Patient with : Anjum Patient Seen by : Anjum Neurosurgery Physical Exam - Vitals, I&O, Labs I and O 09/04/16 09/05/16 09/06/16 05:59 05:59 05:59 Intake Total 2380 2000 Output Total 1355 1010 Balance 1025 990 Weight 72.57 kg Intake: Oral (ml) 330 2000 IV Intake (ml) 1300 IV Infused (ml) 750 Ns 1,000 ml @ 75 mls/hr 650 IV CONT LION Rx#: [id number] ceFAZolin 2 GM/DEXTROSE 100 100 ml @ 200 mls/hr IV Q8H LION Rx#:[id number] Output: Urine (ml) 850 700 Urinal 850 700 Estimated Blood Loss (ml) 200 STELLA Drain Output (ml) 305 310 #1 Posterior Back 305 310 Other: Intake Quantity Yes Sufficient Number of Voids Toilet 1 Urinal 1 1 Vital Signs Temp Pulse Resp BP Pulse Ox 36.8 C 69 16 112/82 H 96 09/05/16 03:21 09/05/16 03:21 09/05/16 03:21 09/05/16 03:21 09/05/16 03:21 Laboratory Results 09/05/16 04:33 09/05/16 04:33 ICD10 Worksheet Patient Problems: Problems Problem Status Onset Arthrodesis status Acute Atrial flutter, chronic Acute Lumbar radicular pain Acute Lumbar stenosis Acute Sciatica of left side associated with disorder of lumbar spine Acute
[2016-09-05] MEDS: ACETAMINOPHEN 500 MG TAB PO SCH (08:34)
[2016-09-05] MEDS: predniSONE 20 MG TAB PO SCH (08:34)
[2016-09-05] MEDS: morphINE SR 15 MG TAB PO SCH (08:34)
[2016-09-05] MEDS: SENNOSIDES/DOCUSATE SODIUM TAB PO SCH (08:34)
[2016-09-05] MEDS: FAMOTIDINE 20 MG TAB PO SCH (08:34)
[2016-09-05] MEDS: METHOCARBAMOL 750 MG TAB PO PRN ×2 (08:34→14:33)
[2016-09-05] MEDS ORDERED: POLYETHYLENE GLYCOL 3350 17 GM PKT PO SCH (09:00)
--- NOTE | 2016-09-05 09:02 | CPEKG ---
Heart Rate: 87 RR Interval: 690 QRSD Interval: 102 QT Interval: 396 QTC Interval: 477 QRS [place]: 47 T Wave [place]: 94 EKG Severity - ABNORMAL ECG - EKG Impression: ATRIAL FLUTTER, A-RATE 294 EKG Impression: ST ELEVATION, PROBABLE INFERIOR INJURY EKG Impression: LATERAL LEADS ARE ALSO INVOLVED Electronically Signed By: Sascha León 05-Sep-2016 14:17:58
[2016-09-05 11:58] VITALS: BP 122/85; PULSE 71; RESP 13; TEMP 98; O2SAT 95
--- NOTE | 2016-09-05 15:13 | SOAPPROG ---
SOAP Progress Note Assessment/Plan: Assessment: 1. Atrial flutter Impression: Atrial flutter with variable rate control. episode at 160 last night. Asymptomatic Ok for discharge Holter in one week for rate control Follow up 10 days. Pending holter consider rate control. Anticoagulation felipe. 09/05/16 15:10 Subjective: No cardiac complaints. Denies chest pain, sob, pnd, orthopnea. Objective: Vital Signs Temp Pulse Resp BP Pulse Ox 36.7 C 71 13 122/85 H 95 09/05/16 11:56 09/05/16 11:56 09/05/16 11:56 09/05/16 11:56 09/05/16 11:56 Laboratory Results 09/05/16 04:33 09/05/16 04:33 09/04/16 09/05/16 09/06/16 05:59 05:59 05:59 Intake Total 2380 2000 Output Total 1355 1010 Balance 1025 990 PT 14.0 SEC (12.0-15.0) 09/01/16 16:28 INR 1.09 (0.83-1.16) 09/01/16 16:28 tele: atrial flutter Physical Exam - Physical Exam General Appearance: alert, no apparent distress EENT: PERRL/EOMI Neck: non-tender, full range of motion Respiratory: chest non-tender, lungs clear Cardiac/Chest: irregularly irregular Abdomen: non-tender Skin: warm/dry ICD10 Worksheet Patient Problems: Problems Problem Status Onset Sciatica of left side associated with disorder of lumbar spine Acute Atrial flutter, chronic Acute Lumbar stenosis Acute Lumbar radicular pain Acute Arthrodesis status Acute Review of Systems - Review of Systems Constitutional: denies: chills, fever Respiratory: no symptoms reported Cardiac: no symptoms reported
--- NOTE | 2016-09-05 23:58 | GDS ---
[f rep st] DISCHARGE SUMMARY DISCHARGE DIAGNOSES: 1. Sciatic pain. 2. History of atrial flutter. CONSULTATIONS: 1. Neurosurgery. 2. Cardiology. PHYSICAL EXAM: GENERAL: The patient is alert. VITAL SIGNS: Afebrile at 36.7, pulse is 71, respir atory rate 13, blood pressure is 122/85. He is saturating 95% on room air. I have seen and evaluated the patient on the day of discharge. HOSPITAL COURSE: The patient is a 70-year-old male who presented to the emergency room with complai nts of sciatic pain. He was evaluated and diagnosed with: 1. Presumed nerve impingement: During this hospitalization, he received a consultation from Neuros urgery. Surgical intervention was performed with removal of hardware at L4-L5 and new TLIF performe d at L3-L4, and posterior fusion. He was doing well and recovering in the postoperative state and i s eager to be discharged home. His pain is well controlled. He has no needs for home health care. I reviewed his care with Neurosurgery, who is in agreement with his disposition. 2. History of atrial flutter: During this hospitalization it was noted that the patient suffers fr om atrial flutter with intermittent elevated heart rate. He did receive a consultation from [facility]. He will follow up with Dr. Conti, his primary c unix developer, in the outpatient setting. He will resume his aspirin on 09/07/2016, and may need a beta leif in the future. This will be defe rred to Cardiology. 3. Disposition: The patient will be discharged home independently. Followup will be with Dr. Ron quintanilla, he will his primary c unix developer, as well as his primary care physician, Dr. Onelia Jarrell and Neurosurgery. There are no pending studies. DISCHARGE MEDICATIONS: Please refer to EMR form. I have provided the patient a prescription for Pe rcocet, Oxy-IR, Robaxin, morphine SR, and Valium. I have also continued his other previously prescr ibed home medications. I spent greater than 35 minutes in the care, coordination, and management of the patient's dispositi on. /[id number]/MODL
[2016-09-06] MEDS ORDERED: ENOXAPARIN 40 MG/0.4 ML SYR SC SCH (09:00)
== END 2016-09-05 15:32 | disposition home or self-care (01) | DRG 460 ==
LOC: INTOOBSV 19:54 → F1N 21:02 → OBSVTOIN 09-02 18:02 → F3N 09-03 17:11
PROVIDERS: ADMIT Internal Medicine; ATTEND Student in an Organized Health Care Education/Training Program
PROC: 4A1004G Monitoring of Central Nervous Electrical Activity, Intraoperative, Open Approach (ICD-10-PCS; principal; 2016-09-03 17:30)
PROC: 00NY0ZZ Release Lumbar Spinal Cord, Open Approach (ICD-10-PCS; principal; 2016-09-03 17:30)
PROC: 0SG10AJ Fusion of 2 or more Lumbar Vertebral Joints with Interbody Fusion Device, Posterior Approach, Anterior Column, Open Approach (ICD-10-PCS; principal; 2016-09-03 17:30)
PROC: 0SP004Z Removal of Internal Fixation Device from Lumbar Vertebral Joint, Open Approach (ICD-10-PCS; principal; 2016-09-03 17:30)
DX: M51.26 Other intervertebral disc displacement, lumbar region (principal); I48.92 Unspecified atrial flutter; M43.16 Spondylolisthesis, lumbar region; I48.2 Chronic atrial fibrillation; Z87.891 Personal history of nicotine dependence; Z98.1 Arthrodesis status
CPT/HCPCS: 96374; 97116-GP; 97161-GP; 97165-GO; 97530-GO; 97535-GO; C1713; G0378; G8987-GO-CL; G8988-GO-CI; G8989-GO-CI; J0690; J1100; J1170; J1650; J1885; J2001; J2370; J2704

== ENCOUNTER 2016-10-02 11:09 | Observation (INO) | payer OTHER ==
[2016-10-02] MEDS ORDERED: NS 1,000 ML IV ONE (11:19)
[2016-10-02] MEDS ORDERED: MIDAZOLAM 2 MG/2 ML VIAL IVP ONE (11:19)
--- NOTE | 2016-10-02 11:45 | CPEKG ---
Heart Rate: 66 RR Interval: 909 QRSD Interval: 88 QT Interval: 352 QTC Interval: 369 QRS [place]: -24 T Wave [place]: 49 EKG Severity - ABNORMAL ECG - EKG Impression: ATRIAL FLUTTER, A-RATE 283 EKG Impression: INFERIOR INFARCT, AGE INDETERMINATE EKG Impression: SHORT QT INTERVAL Electronically Signed By: Jeremiah Humphrey 02-Oct-2016 14:17:51
[2016-10-02 12:02] LABS: % IMMATURE GRANULYOCYTES 0.4 % (0.0-1.1); ABSOLUTE IMMATURE GRANULOCYTES 0.03 10^3/uL (0.00-0.10); ADD DIFF? NO; ADD MORPH? NO; ADD SCAN? NO; ATYPICAL LYMPHOCYTE FLAG 0 (0-99); FRAGMENT RBC FLAG 0 (0-99); HEMATOCRIT 43.6 % (40.0-51.0); HEMOGLOBIN 14.4 g/dL (13.7-17.5); LEFT SHIFT FLG 0 (0-99); LIPEMIA HEMOLYSIS FLAG 80 (0-99); MEAN CELL HEMOGLOBIN 32.3 pg (27.9-34.1); MEAN CELL VOLUME 97.8 fL (81.5-99.8); MEAN PLATELET VOLUME 9.6 fL (8.7-11.7); PLATELET CLUMPS FLAG 10 (0-99); PLATELET COUNT 202 10^3/uL (150-400); RED BLOOD CELL COUNT 4.46 10^6/uL (4.40-6.38); RED CELL DISTRIBUTION WIDTH 13.3 % (11.5-15.2)
[2016-10-02] MEDS ORDERED: BUPIVACAINE 0.5% 30 ML SDV ONE (12:07)
[2016-10-02] MEDS ORDERED: LIDOCAINE 1% 300 MG/30 ML SDV ONE (12:07)
[2016-10-02] MEDS ORDERED: HEPARIN 10,000 UNIT/10 ML MDV ONE (12:07)
[2016-10-02] MEDS ORDERED: ISOPROTERENOL HCL/D5W 0.2 MG/50 ML BAG IV ONE (12:08)
[2016-10-02 12:15] LABS: APTT 24.7 SEC (23.0-38.0); INR 1.06 (0.83-1.16); PROTIME(PATIENT) 13.7 SEC (12.0-15.0)
[2016-10-02] MEDS ORDERED: fentaNYL 100 MCG/2 ML INJ ONE ×2 (12:31→14:20)
[2016-10-02] MEDS ORDERED: PROPOFOL/EMULSION 500 MG/50 ML BOTTLE IV ONE (12:31)
[2016-10-02] MEDS ORDERED: DEXAMETHASONE 4 MG/ML VIAL ONE (12:33)
[2016-10-02] MEDS ORDERED: ROCURONIUM 100 MG/10 ML VIAL ONE (12:33)
[2016-10-02 12:38] LABS: ANION GAP 11 mEq/L (8-16); CALCIUM 9.6 mg/dL (8.5-10.4); CARBON DIOXIDE 24 mEq/l (22-31); CHLORIDE 106 mEq/L (97-110); CREATININE 0.8 mg/dL (0.7-1.3); GLOMERULAR FILTRATION RATE > 60; GLUCOSE 87 mg/dL (70-100); MAGNESIUM 1.8 mg/dL (1.6-2.3); POTASSIUM 4.2 mEq/L (3.5-5.2); SODIUM 141 mEq/L (134-144)
--- NOTE | 2016-10-02 13:16 | PDANEPAE ---
ANE History of Present Illness 70 yo male with A flutter ANE Past Medical History Past Medical History: No significant PMH other than AFlutter and back pain/lower extremity weakness that was corrected with a spinal fusion about 4 weeks ago. - Cardiovascular History Hx Hypertension: No Hx Arrhythmias: Yes Hx Coronary Artery / Peripheral Vascular Disease: No Cardiovascular History Comment: atrial flutter, hypercholesterolemia - Pulmonary History Hx Recent Upper Respiratory Infection: No Hx Oxygen in Use at Home: No Hx Sleep Apnea: No - Neurologic History Neurologic History Comment: recent spinal fusion to address lower extremity weakness. Pt has significant limitations in position secondary to recent surgery. Pt on narcotics and antispasmodics. - Endocrine History Hx Diabetes: No - Liver History Hx Hepatic Disorders: Yes Hepatic History Comment: elevated nLFT's with lipitor - Chronic Pain History Chronic Pain: No ANE Review of Systems - Exercise capacity METS (RN): 4 METS METS Comment: Diminished mets since surgery in acute rehabilitation phase. - Systems Constitutional: Reports: no symptoms Muscolosketal: Reports: back pain, muscle stiffness ANE Patient History - Allergies Allergies/Adverse Reactions: No Known Allergies Allergy (Unverified 05/30/12 10:12) - Home Medications Home medications: home medication list seen and reviewed Home Medications: ALPRAZolam [Xanax 0.25 MG (*)] 0.25 mg PO DAILY PRN 09/01/16 [Last Taken ] Cyclobenzaprine [Flexeril 10 MG (*)] 10 mg PO HS 09/01/16 [Last Taken 09/01/16] Gabapentin [Neurontin 300 MG (*)] 300 mg PO HS PRN 09/01/16 [Last Taken Unknown] - NPO status NPO Status: no food or drink >8 hours - Anes Hx Anes Hx: no prior problems - Smoking Hx Smoking Status: Former smoker - Family Anes Hx Family Anes Hx: neg - N/A ANE Labs/Vital Signs - Labs Result Diagrams: 10/02/16 11:50 10/02/16 11:50 - Vital Signs Vital Signs: reviewed preoperatively; see RN documention for details Height: 175 cm Weight: 71.7 kg ANE Physical Exam - Airway Neck exam: FROM Mallampati Score: Class 1 Mouth exam: normal dental/mouth exam - Pulmonary Pulmonary: clear to auscultation - Cardiovascular Cardiovascular: regular rate and rhythym - ASA Status ASA Status: II ANE Anesthesia Plan Anesthesia Plan: general endotracheal anesthesia
[2016-10-02] MEDS ORDERED: DIAZEPAM 10 MG/2 ML SYR ONE (13:25)
[2016-10-02] MEDS ORDERED: NEOSTIGMINE METHYLSULFATE 5 MG/5 ML SYR ONE (14:53)
[2016-10-02] MEDS ORDERED: GLYCOPYRROLATE 0.2 MG/1 ML VIAL ONE (14:53)
[2016-10-02] MEDS ORDERED: ONDANSETRON 4 MG/2 ML VIAL IVP PRN ×2 (15:09→15:27)
[2016-10-02] MEDS ORDERED: ACETAMINOPHEN 325 MG TAB PO PRN (15:09)
[2016-10-02] MEDS ORDERED: OXYCODONE/APAP 5/325 TAB PO PRN (15:09)
[2016-10-02] MEDS ORDERED: ATROPINE SULFATE 1 MG/10 ML SYR ONE (15:21)
[2016-10-02] MEDS ORDERED: fentaNYL 100 MCG/2 ML INJ IVP PRN (15:27)
[2016-10-02] MEDS ORDERED: NALOXONE HCL 0.4 MG/ML INJ IVP PRN (15:27)
[2016-10-02] MEDS ORDERED: ACETAMINOPHEN 500 MG TAB PO PRN ×2 (15:27→18:57)
--- NOTE | 2016-10-02 15:28 | POSTANESTH ---
Post Anesthetic Evaluation Cardiovascular Status: Normal, Stable Respiratory Status: Normal, Stable Level of Consciousness/Mental Status: Can Participate in Eval, Mildly Sleepy, Arousable Pain Control: Adequate, Prn Tx Ordered Nausea/Vomiting Control: Adequate, Prn Tx Ordered Complications Possibly Related to Anesthesia: None Noted
[2016-10-02 16:19] LABS: ANION GAP 7 mEq/L (8-16); CALCIUM 8.1 mg/dL (8.5-10.4); CARBON DIOXIDE 22 mEq/l (22-31); CHLORIDE 110 mEq/L (97-110); CREATININE 0.7 mg/dL (0.7-1.3); GLOMERULAR FILTRATION RATE > 60; GLUCOSE 93 mg/dL (70-100); MAGNESIUM 1.6 mg/dL (1.6-2.3); SODIUM 139 mEq/L (134-144)
--- NOTE | 2016-10-02 16:25 | CPEKG ---
Heart Rate: 58 RR Interval: 1034 P-R Interval: 228 QRSD Interval: 98 QT Interval: 464 QTC Interval: 456 P [place]: 74 QRS [place]: 31 T Wave [place]: 18 EKG Severity - ABNORMAL ECG - EKG Impression: SINUS RHYTHM EKG Impression: FIRST DEGREE AV BLOCK EKG Impression: LEFT ATRIAL ABNORMALITY EKG Impression: SINUS RHYTHM HAS REPLACED ATRIAL FLUTTER Electronically Signed By: Sascha León 02-Oct-2016 23:00:32
[2016-10-02] MEDS ORDERED: GABAPENTIN 300 MG CAP PO PRN (18:57)
[2016-10-02] MEDS ORDERED: CYCLOBENZAPRINE 10 MG TAB PO PRN (18:57)
[2016-10-02] MEDS ORDERED: ALPRAZolam 0.25 MG TAB PO PRN (18:57)
[2016-10-02] MEDS: APIXABAN 5 MG TAB PO SCH (21:13)
[2016-10-03 04:59] LABS: % IMMATURE GRANULYOCYTES 0.4 % (0.0-1.1); ABSOLUTE IMMATURE GRANULOCYTES 0.03 10^3/uL (0.00-0.10); ADD DIFF? NO; ADD MORPH? NO; ADD SCAN? NO; ATYPICAL LYMPHOCYTE FLAG 0 (0-99); FRAGMENT RBC FLAG 0 (0-99); HEMATOCRIT 37.9 % (40.0-51.0); HEMOGLOBIN 12.4 g/dL (13.7-17.5); LEFT SHIFT FLG 10 (0-99); LIPEMIA HEMOLYSIS FLAG 80 (0-99); MEAN CELL HEMOGLOBIN 31.9 pg (27.9-34.1); MEAN CELL HEMOGLOBIN CONCENTR. 32.7 g/dL (32.4-36.7); MEAN CELL VOLUME 97.4 fL (81.5-99.8); MEAN PLATELET VOLUME 9.9 fL (8.7-11.7); PLATELET CLUMPS FLAG 0 (0-99); PLATELET COUNT 179 10^3/uL (150-400); RED BLOOD CELL COUNT 3.89 10^6/uL (4.40-6.38); RED CELL DISTRIBUTION WIDTH 13.2 % (11.5-15.2)
[2016-10-03 05:13] LABS: ANION GAP 8 mEq/L (8-16); CALCIUM 8.9 mg/dL (8.5-10.4); CARBON DIOXIDE 22 mEq/l (22-31); CHLORIDE 107 mEq/L (97-110); CREATININE 0.7 mg/dL (0.7-1.3); GLOMERULAR FILTRATION RATE > 60; GLUCOSE 95 mg/dL (70-100); POTASSIUM 4.5 mEq/L (3.5-5.2); SODIUM 137 mEq/L (134-144)
[2016-10-03 05:17] LABS: INR 1.28 (0.83-1.16)
[2016-10-03 05:21] LABS: CREATINE KINASE-MB FRACTION 1.83 ng/mL (0.00-3.19); TROPONIN I 0.112 ng/mL (0.000-0.034)
[2016-10-03 08:21] VITALS: BP 135/84; PULSE 63; RESP 13; TEMP 97.9; O2SAT 98
[2016-10-03] MEDS: APIXABAN 5 MG TAB PO SCH (08:34)
--- NOTE | 2016-10-03 08:49 | CPEKG ---
Heart Rate: 67 RR Interval: 896 P-R Interval: 236 QRSD Interval: 84 QT Interval: 400 QTC Interval: 423 P [place]: 74 QRS [place]: 21 T Wave [place]: 34 EKG Severity - ABNORMAL ECG - EKG Impression: SINUS RHYTHM EKG Impression: FIRST DEGREE AV BLOCK EKG Impression: PROBABLE LEFT ATRIAL ABNORMALITY Electronically Signed By: Sascha León 03-Oct-2016 08:53:01
[2016-10-03] MEDS ORDERED: Herbals/Supplements -Info Only PO SCH (09:00)
--- NOTE | 2016-10-03 15:16 | ECHO ---
[id number] + + [address] : : [place] [address] : : [phone] + + Adult Echocardiographic Report + --------+ :Name: LACEY BEARDEN MStudy Date: 10/03/2016 07:55 AM : : Hospital Admission Number: [id number] Locat ion: 201: :: 1945 Gender: Male Height: 69 in : :Age: 70 yrs Race: WH,White Weight: 158 l b : :Reason For Study: F/U post EP study : : BSA: 1.9 mete rs2 : + --------+ MMode/2D Measurements \T\ Calculations IVSd: 0.59 cm LVIDd: 4.8 cm FS: 42.0 % Ao root diam: LVPWd: 0.77 cm LVIDs: 2.8 cm EDV(Teich): 3.9 cm 106.8 ml LA dimension: ESV(Teich): 4.2 cm 28.9 ml EF(Teich): 72.9 % LVLd ap4: 8.3 cm SV(MOD-sp4): EDV(MOD-sp4): 65.0 ml 96.0 ml LVLs ap4: 7.1 cm ESV(MOD-sp4): 31.0 ml EF(MOD-sp4): 67.7 % Normal Measurement Values: + + :LVIDd (3.5-5.7cm) IVSd (0.6-1.1cm) LVPWd (0.6-1.1cm) Aortic Root (2.0-3.7cm)Left Atrium (1.5-4.0cm): :LV Vol(d) (76-115ml) LV Vol(s) (29-48ml) Ejec Fraction (50-65%)PV Elliott (0.6- 1.2m/s) TV Ellitot (0.4-1.0m/s) : :MV E Elliott (0.8-1.0m/s)MV A Elliott (0.3-1.0m/s)LVOT Elliott (0.7-1.2m/s) Asc Ao Elliott ( 0.9-1.8m/s) : + + Doppler Measurements \T\ Calculations MV E max elliott: 74.0 cm/sec Ao V2 max: 114.0 cm/sec TR max elliott: 305.4 cm/sec MV A max elliott: 54.8 cm/sec Ao max P.2 mmHg TR max P.3 mmHg MV E/A: 1.4 RAP systole: 5.0 mmHg RVSP(TR): 42.3 mmHg Left Ventricle The left ventricle is normal in size. There is normal left ventricular wall thickness. Left ventricular systolic function is normal. Ejection Fraction = 65-70%. No regional wall motion abnormalities noted. Right Ventricle The right ventricle is normal in size and function. A moderator band is seen in the right ventricle. Atria The left atrium is mildly dilated. The right atrium is mildly dilated. The interatrial septum is intact with no evidence for an atrial septal defect. Mitral Valve Chordal MONTEZ without LVOT obstruction. There is no evidence of mitral valve prolapse. There is no mitral valve stenosis. Mild regurgitation (2 jets). Tricuspid Valve Normal tricuspid valve. There is mild tricuspid regurgitation. Right ventricular systolic pressure is 43mmHg. There is Doppler evidence for mild pulmonary hypertension. Aortic Valve The aortic valve is trileaflet. The aortic valve opens well. There is no aortic stenosis. Trace aortic regurgitation. Pulmonic Valve The pulmonic valve is normal in structure and function. Mild pulmonic valvular regurgitation. Great Vessels The aortic root is normal size. Pericardium/Pleural There is no pericardial effusion. Conclusion A complete two-dimensional transthoracic echocardiogram was performed (2D, M-mode, Doppler and color flow Doppler). Left ventricular systolic function is normal. Ejection Fraction = 65-70%. The left atrium is mildly dilated. The right atrium is mildly dilated. Trace aortic regurgitation. Chordal MONTEZ without LVOT obstruction. Mild regurgitation (2 jets). There is mild tricuspid regurgitation. There is Doppler evidence for mild pulmonary hypertension. Right ventricular systolic pressure is 43mmHg. Mild pulmonic valvular regurgitation. There is no pericardial effusion. Final Reading Physician: Solomon Harden signed on 10/03/2016 03:15 PM Ordering Physician: Erick Lynch Performed By: Addie Wilson, LITOCS
--- NOTE | 2016-10-03 17:39 | EPPROC ---
Electrophysiology Procedure Note: ELECTROPHYSIOLOGIC STUDY AND CATHETER MEDIATED ABLATION FOR SUBEUSTACHIAN ISTHMUS DEPENDENT COUNTERCLOCKWISE ATRIAL FLUTTER: INDICATION: Recurrent atrial flutter PROCEDURES PERFORMED: 66458-26 EP evaluation with RA/RV/LA pace/record, with arrhythmia induction 40367-08 EP evaluation with RA/RV pace record, insert/reposition catheter, with arrhythmia induction 03891 SVT ablation 76140 3D mapping Fluoroscopy Catheters & Anesthesia: The patient arrived in the Electrophysiology Laboratory in the fasting state. The right clavicular region, right groin, and left groin area were prepped and draped in the usual sterile manner. Anesthesiologist administered general anesthesia. Appropriate non-invasive blood pressure, pulse oximetry and end- tidal CO2 monitoring was established. NELL was performed. LA clot was ruled out. All catheters were placed percutaneously using the modified Seldinger technique , and advanced into position under fluoroscopic guidance. One #6 Wolof deflectable decapolar catheter was advanced into the CS and another one into the ALRA position via the RFV. Heparin was administered Programmed stimulation was performed from the right atrium, coronary sinus ( left atrium) and right ventricle. On arrival to the Electrophysiology Laboratory the patient was in atrial flutter. Atrial flutter, CL 240 ms. Entrainment mapping from lateral TA, septal TA, proximal CS and distal CS confirmed cavotricuspid isthmus dependent atrial flutter. In preparation for ablation of typical atrial flutter, a high-resolution 3D (3 dimensional) Carto electroanatomical map of the sub-Eustachian isthmus and right atrium was obtained A #8 Wolof deflectable quadrapolar electrode catheter (2mm-5mm-2mm spacing) with 3.5 mm irrigated tip electrode and location sensor for the Joystickers mapping system was inserted in the Ramp 1 long sheath and advanced to the right atrium. Radiofrequency applications were applied between the tricuspid annulus at 0630 oclock as seen in the USHA view and the inferior vena cava. Flutter terminated during ablation. This achieved conduction block across the isthmus Following ablation of the atrial flutter, programmed atrial stimulation was performed in the baseline state and during infusion of isoproterenol 4 mcg/min. No atrial arrhythmias were inducible post ablation. Post ablation, a high-resolution electroanatomical map of the sub-Eustachian isthmus was obtained during pacing of the posterolateral coronary sinus. This confirmed conduction block across the sub-Eustachian isthmus. Bidirectional block was also confirmed by pacing. The catheters were removed. The patient was transferred to the cardiovascular holding area in stable condition. Vascular access sheaths were removed in the holding area. There were no apparent complications. Results: Typical isthmus dependent counterclockwise right atrial flutter Successful ablation of the isthmus Bidirectional block post ablation No induction of Aflutter post ablation CONCLUSIONS: * Cavotricuspid isthmus dependent counterclockwise atrial flutter. * Successful catheter mediated ablation of cavotricuspid isthmus achieving bi- directional conduction block across cavotricuspid isthmus. * No atrial arrhythmias inducible post ablation. * No apparent complications Patient Problems: Problems Problem Status Onset Arthrodesis status Acute Atrial flutter, chronic Acute Lumbar radicular pain Acute Lumbar stenosis Acute Sciatica of left side associated with disorder of lumbar spine Acute
--- NOTE | 2016-10-03 17:51 | GDS ---
[f rep st] DISCHARGE SUMMARY DISCHARGE DIAGNOSES: 1. Persistent atrial flutter, status post EP study and ablation on 10/02/2016. 2. Recent nerve impingement, status post fusion procedure L3-L4 in 08/2016. PROCEDURES: 1. 10/02/2016, EP study with ablation for atrial flutter. 2. 10/03/2016, echocardiogram. BRIEF HISTORY: Please see dictated H and P by Dr. Lynch for complete details. In brief, the patient is a 70-year-old male with a history of mild carotid disease based on CIMT, persistent atrial flutt er, recent sciatic pain, who was found to be in atrial flutter at the time of his sciatic pain exace rbation in August. He was also found to be in atrial flutter at that time. He underwent back surgery and was discharged for followup with Cardiology. He saw Dr. Lynch for his atrial flutter, and optio ns were reviewed. The patient was agreeable to proceed to a flutter ablation for definitive treatme nt. This was done on 10/02/2016 on day of discharge, the patient denies any groin pain, chest pain, or dyspnea. PHYSICAL EXAM: VITAL SIGNS: On day of discharge, blood pressure 135/84, heart rate 63, respiration s 13, O2 saturation 98% on room air. GENERAL: He is a very pleasant male, in no apparent distress. EYES: PERRL. HEENT: Normocephalic atraumatic. HEART: Regular rate and rhythm. LUNGS: Clear. Right groin site is stable. SKIN: Warm and dry. PSYCH: Normal mood and affect. LABORATORY DATA: CBC with WBC 7.7, hemoglobin 12.4 hematocrit 37.9, platelet count of 179. BMP wit h sodium 137, potassium 4.5, chloride 107, CO2 22, BUN 13, creatinine 0.7, glucose 95, troponin 0.11 2 and consistent with recent ablation. RESULTS PENDING: None. DIET: Per previous. ACTIVITY: Groin precautions reviewed. DISCHARGE MEDICATIONS: Please see med reconciliation. He may continue his multivitamin, Neurontin, Flexeril, Tylenol and Xanax. He will start the apixaban 5 mg p.o. b.i.d., and continue that for 1 month's time. FOLLOWUP INSTRUCTIONS: 1. Groin precautions. 2. Follow up with Dr. Lynch as scheduled for next month. /[id number]/MODL
[2016-10-03] MEDS ORDERED: ASPIRIN 81 MG CHEWABLE TAB PO SCH (18:00)
[2016-10-03] MEDS ORDERED: MULTIVITAMINS 1 EACH TAB PO SCH (18:00)
== END 2016-10-03 10:10 | disposition home or self-care (01) ==
LOC: FSGY 11:09 → F2W 15:09
PROVIDERS: ADMIT Internal Medicine Cardiovascular Disease; ATTEND Internal Medicine Cardiovascular Disease
PROC: 02573ZZ Destruction of Left Atrium, Percutaneous Approach (ICD-10-PCS; principal; 2016-10-02)
DX: I48.92 Unspecified atrial flutter (principal); I10 Essential (primary) hypertension; R94.31 Abnormal electrocardiogram [ECG] [EKG]; E78.00 Pure hypercholesterolemia, unspecified; I44.0 Atrioventricular block, first degree
CPT/HCPCS: 93005; 93306; 93312; 93613; 93621; 93623; 93653; C1730; C1732; C1893; G0378; J1100; J1644; J2704; J2710; J3010; J0461

== ENCOUNTER → 2017-11-25 | Day surgery (SDC) | payer OTHER ==
[~2017-11-25] MED LIST changes: +ASPIRIN EC 325 MG TAB PO ONE; +ATROPINE SULFATE 1 MG/10 ML SYR IVP PRN; +DIAZEPAM 5 MG TAB ONE; +DIAZEPAM 5 MG TAB PO ONE; +FAMOTIDINE 20 MG TAB ONE; +FAMOTIDINE 20 MG TAB PO ONE; -GADOBUTROL 10 ML VIAL IVP ONE; +HYDROCODONE/APAP 5/325 TAB ONE; +HYDROCODONE/APAP 5/325 TAB PO PRN; +IOPAMIDOL (ISOVUE-370) 150 ML BTL IV ONE; +LIDOCAINE 1% 300 MG/30 ML SDV ONE; +MIDAZOLAM 2 MG/2 ML VIAL ONE; +NITROGLYCERIN 0.4 MG BTL SL PRN; +NS 1,000 ML IV ONE; +ONDANSETRON 4 MG/2 ML VIAL IVP PRN; +OXYCODONE/APAP 5/325 TAB PO PRN; +diphenhydrAMINE 25 MG CAP PO ONE; +fentaNYL 100 MCG/2 ML INJ ONE
[2017-11-25 06:50] LABS: PLATELET COUNT 153 10^3/uL (150-400)
[2017-11-25 06:58] LABS: INR 0.98 (0.83-1.16); PROTIME(PATIENT) 13.2 SEC (12.0-15.0)
--- NOTE | 2017-11-25 07:24 | PDPROPOC ---
Sedation Plan of Care Sedation Plan of Care: mental status noted, patient educated of risks, benefits , alternatives, patient can tolerate sedation ASA Classification: ASA 2 Planned drugs: fentanyl, midazolam Mallampati Score: Class 2 Mallampati Reference Image: Patient passed 3-3-2 rule?: Yes
--- NOTE | 2017-11-25 08:56 | CPIP ---
DATE OF PROCEDURE: 11/25/2017 INDICATION FOR PROCEDURE: Chest pain, shortness of breath. PROCEDURE: 1. Nonselective right groin sheathogram. 2. Seven-Togolese sheath to the right common femoral vein. 3. Right heart catheterization. 4. Bilateral selective coronary angiography. 5. Left heart catheterization. 6. Left ventriculogram. 7. Right groin closure with 6-Togolese Angio-Seal manual pressure on 7-Togolese sheath. HISTORY: Briefly, this is a 72-year-old male with history of recent chest pain, shortness of breath, positive stress test. Given these findings, patient consented for right and left heart catheterizat ion. DESCRIPTION OF PROCEDURE: After informed consent, the patient was brought to [facility] where the right mel in was prepped and draped in sterile fashion. Using lidocaine, a short 6-Togolese sheath was introduce d in the right common femoral artery verified angiographically. A 7-Togolese sheath right common femor al vein. A [place]Slick catheter was then advanced. Wedge pressure was mean of 8, A-wave 9, V-wave 9, PA pressure systolic 36, diastolic 13, mean of 21, RV pressure was measured to be 36 with an end of 6 . RA pressure was mean of 5, A-wave 11, V-wave 8. Cardiac output was measured to be 5.32 with an in dex of 2.8. AO sat was 97%. PA sat was 80%. [place] catheter was then removed. A JL4 catheter w as then advanced to the left coronary artery. Images of the left coronary artery revealed normal lef t main. Left circumflex artery gave off a high marginal 1 artery which was healthy and free of disea se. The circumflex terminated to a bifurcating distal marginal artery which was healthy and free of disease. The LAD was a long thin vessel which wrapped around the apex, which had no significant dise ase. There was a medium to large diagonal artery coming off the proximal portion of the LAD, which w as healthy and free of disease. After these images were obtained, the JL4 catheter was removed over the 0.035 wire. JR4 catheter was advanced into the right coronary artery. Images of the right coron jonathan artery revealed normal os prox mid distal RCA. The RPD and RPLS appeared to be healthy and free of disease. A JR4 catheter was removed over the 0.035 wire. Pigtail catheter was then advanced to t he left ventricle. LVEDP was 16 mmHg. Left ventriculogram in the CONWAY position showed EF of 50% with mild anterobasilar hypokinesis. There was no pullback gradient aorta. Pigtail catheter was removed over an 0.035 wire. Right groin was closed with 6-Togolese Angio-Seal. Seven-Togolese sheat h was closed with manual pressure. Patient tolerated the procedure well. No complications. IMPRESSION: 1. Essentially normal coronary arteries. 2. Normal pulmonic pressures with normal cardiac output. 3. Low normal ejection fraction of 50% with mild anterobasal hypokinesis. PLAN: The patient does not have a coronary etiology for his current symptoms. Coronary spasm may be a potential etiology. The patient will be discharged home later this morning. He will follow up in the office in 1 week's time for further discussion about medical management. /[id number]/MODL
[2017-11-25 12:45] VITALS: BP 132/73
--- NOTE | 2017-11-27 09:00 | CPEKG ---
Test Reason : OPEN Blood Pressure : / mmHG Vent. Rate : 050 BPM Atrial Rate : 050 BPM P-R Int : 257 ms QRS Dur : 087 ms QT Int : 443 ms P-R-T Axes : 075 006 049 degrees QTc Int : 404 ms Sinus rhythm Prolonged TN interval Confirmed by Sascha León ([id number]) on 11/27/2017 9:00:16 AM Referred By: Confirmed By:Sascha León
== END | disposition home or self-care (01) ==
LOC: FCATH 06:13
PROVIDERS: ATTEND Internal Medicine Cardiovascular Disease
PROC: B2111ZZ Fluoroscopy of Multiple Coronary Arteries using Low Osmolar Contrast (ICD-10-PCS; principal; 2017-11-25)
PROC: B2151ZZ Fluoroscopy of Left Heart using Low Osmolar Contrast (ICD-10-PCS; principal; 2017-11-25)
PROC: 4A023N8 Measurement of Cardiac Sampling and Pressure, Bilateral, Percutaneous Approach (ICD-10-PCS; principal; 2017-11-25)
DX: R07.9 Chest pain, unspecified (principal); R06.02 Shortness of breath
CPT/HCPCS: C1760; J1644; J2250; J3010; Q9967

== ENCOUNTER → 2017-12-04 | Outpatient (CLI) | payer OTHER | LOC: FIMAGING 10:41 | PROVIDERS: ATTEND Nurse Practitioner Adult Health | DX: R10.31 Right lower quadrant pain (principal) ==

== ENCOUNTER → 2018-03-12 | Outpatient (CLI) | payer OTHER | LOC: FIMAGING 07:33 | PROVIDERS: ATTEND Internal Medicine Cardiovascular Disease | DX: R10.30 Lower abdominal pain, unspecified (principal) ==